=== PATIENT | female | born 1945 | race Caucasian/White ===

== ENCOUNTER 2019-04-19 09:01 | Outpatient (CLI) | payer MEDICARE, SELFPAY ==
--- NOTE | ~2019-04-19 | PE_ITS ---
EXAMINATION: PET skull to mid thigh DATE: 04/19/2019 11:21 INDICATION: Malignant neoplasm of the left bronchus or lung TECHNIQUE: Blood glucose level was 88 mg/dL. 10.046 mCi of 18-fluorodeoxyglucose (18-FDG) was adminis tered i.v. Low dose computed tomography (CT) images were acquired from the base of the brain to the p roximal thighs for attenuation correction and anatomic localization. Positron emission tomography (PE T) images were acquired in the same distribution beginning 78 minutes after injection. COMPARISON: 10/05/2018 FINDINGS: Head/neck: FDG uptake in the oropharynx and focal cords without suspicious CT correlate is most likel y physiologic. No suspicious FDG uptake is identified. Chest: The previously described 9 mm left upper lobe nodule with abnormal FDG uptake has decreased in size now measuring 6 cm. Associated FDG uptake has also apparently decreased but this could be due t o small size. There is a 1.3 x 1.0 cm cavitary nodule of the left upper lobe on image 263 which demon strates interval thickening of the wall and mild FDG uptake with an SUV max of 2.4. A chronic area of scarring in the demonstrates minimal FDG uptake with an SUV max of 1.7. There is mild dependent atel ectasis. No pathologically enlarged thoracic lymph nodes are identified. The heart size is normal. Ca lcified mediastinal lymph nodes are consistent with old granulomatous disease. 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 N o abnormal FDG uptake is identified. Punctate calcifications in an otherwise normal spleen likely rep resent healed granulomatous disease. Chronic pneumobilia persists but has decreased. Cysts of the kid neys measure up to 5.0 cm on the right. There is calcified atherosclerosis of the aorta and many of t he other arteries. No pathologically enlarged abdominal or pelvic lymph nodes are identified. There i s no free intraperitoneal gas or evidence of bowel obstruction. Musculoskeletal: There is a new mild compression deformity of the T8 vertebral body with approximatel y one third loss of vertebral body height. There is minimal associated abnormal FDG uptake. No underl mitchell lesion is identified. No additional abnormal FDG uptake is identified. IMPRESSION: 1. Interval decrease in size of, and FDG uptake within, a biopsy-proven left upper lobe malignancy. A pparent decrease in FDG uptake could relate to the now small size of the nodule. 2. Subtle FDG uptake in a cavitary left upper lobe nodule and area of right upper lobe scarring could be reactive, infectious, or inflammatory. Attention on follow-up examination is recommended. 3. New compression fracture of the T8 vertebral body with one third loss of vertebral body height but no definite underlying metastasis. Reviewed, dictated and finalized at location [facility]. OR MAGAZINE IMPRESSION: 1. Interval decrease in size of, and FDG uptake within, a biopsy-proven left up per lobe malignancy. Apparent decrease in FDG uptake could relate to the now sm all size of the nodule. 2. Subtle FDG uptake in a cavitary left upper lobe nodule and area of right upp er lobe scarring could be reactive, infectious, or inflammatory. Attention on f ollow-up examination is recommended. 3. New compression fracture of the T8 vertebral body with one third loss of sierra tebral body height but no definite underlying metastasis.
[2019-04-19 09:30] LABS: Glucose Point of Care 88 (65-105)
== END 2019-04-19 09:02 | disposition home or self-care (01) ==
LOC: ANHIMG 09:04
PROVIDERS: PCP Family Medicine; Visit Provider Internal Medicine Hematology & Oncology
DX: C34.92 Malignant neoplasm of unspecified part of left bronchus or lung (principal); R91.8 Other nonspecific abnormal finding of lung field; M48.54XA Collapsed vertebra, not elsewhere classified, thoracic region, initial encounter for fracture
CPT/HCPCS: 78815; A9552

== ENCOUNTER 2019-06-02 09:36 | Outpatient (CLI) | payer MEDICARE, SELFPAY ==
--- NOTE | ~2019-06-02 | CT_ITS ---
EXAMINATION: CT chest w con DATE: 06/02/2019 10:23 INDICATION: Non-small cell left lung cancer TECHNIQUE: Computed tomography (CT) of the chest was performed with 75 cc Omnipaque 350 intravenous c ontrast. Automated exposure control and iterative reconstruction technique were employed. Exam dose: 143.72 mGy-cm total exam DLP. COMPARISON: 09/06/2018 CTA chest abdomen pelvis 02/07/2019 CT chest 04/19/2019 10/CT scan FINDINGS: Calcified right hilar and subcarinal lymph nodes and calcified middle and right lower lobe pulmonary granulomas, consistent with old granulomatous disease. Normal heart size. No pericardial or pleural effusion. Descending thoracic aortic stent graft is again noted. Emphysematous changes are again noted. Chronic stable posterolateral right apical scarring. Focal discoid atelectasis and/or scarring middle lobe in the paramediastinal area. Chronic discoid atelectasis or scarring in the posteromedial left lung base, mildly improved since . There is focal irregular soft tissue thickening in the anteromedial left upper lobe (series 4 images 55-59 which appears mildly increased in prominence compared to 02/07/2019. Malignancy at this site is not excluded. Consider continued periodic CT and PET/CT scan monitoring at appropriate intervals. Approximately 5-6 mm density in the right upper lobe (series 4 image 60), compared to 7 mm on 09/07/19 19. Approximately 6 mm opacity in the left upper lobe (series 4 image 55), diminished in size from 9 mm o n 09/06/2018. Right lower mediastinal calcified lymph nodes consistent with old granulomatous disease Pneumobilia. Hepatic and splenic calcified granulomas consistent with old granulomatous disease Scattered left renal cysts. Healing right 10th and 11th rib fractures. IMPRESSION: Mild increased prominence of left upper lobe localized opacity; otherwise diminished siz e of bilateral lung nodules since 02/07/2019. Continued CT thorax and PET/CT follow up is recommended. Reviewed, dictated and finalized at [facility]. Reviewed, dictated and finalized at location [facility]. IMPRESSION: Mild increased prominence of left upper lobe localized opacity; ot herwise diminished size of bilateral lung nodules since 02/07/2019. Continued CT thorax and PET/CT follow up is recommended.
[2019-06-02 10:16] LABS: Estimated Glomerular Filt Rate > 60
== END 2019-06-02 09:37 | disposition home or self-care (01) ==
LOC: ANHIMG 09:38
PROVIDERS: PCP Family Medicine; Visit Provider Internal Medicine Hematology & Oncology
DX: C34.92 Malignant neoplasm of unspecified part of left bronchus or lung (principal)
CPT/HCPCS: 36415; 71260; Q9967

== ENCOUNTER 2019-06-06 10:02 | Outpatient (CLI) | payer MEDICARE, SELFPAY ==
[2019-06-06 10:20] LABS: Basophils Absolute Auto 0.1 K/mm3 (0.0-0.1); Basophils Percent Auto 1.2 % (0.2-1.2); Eosinophils Absolute Auto 0.2 K/mm3 (0-0.3); Hematocrit 44.8 % (37.0-47.0); Immature Granulocyte Absolute 0.02 K/mm3 (0.00-0.031); Immature Granulocyte Percent A 0.2 % (0-0.5); Lymphocytes Absolute Auto 1.56 K/mm3 (0.9-3.2); Lymphocytes Percent Auto 15.9 % (18.3-44.2); Mean Corpuscular HGB Conc 31.3 g/dl (32-36); Mean Corpuscular Hemoglobin 32.9 pg (26-34); Mean Corpuscular Volume 105.2 fl (80-100); Mean Platelet Volume 10.1 fl (7.4-10.4); Monocytes Absolute Auto 0.4 K/mm3 (0.1-0.6); Monocytes Percent Auto 4.3 % (2.6-8.5); Neutrophils Absolute Auto 7.5 K/mm3 (1.3-6.7); Neutrophils Percent Auto 76.4 % (45.5-73.1); Platelet Count Result 306 k/mm3 (150-375); Red Blood Count 4.26 M/mm3 (4.2-5.4); Red Cell Distribution Width 13.6 % (11.5-14.5); White Blood Count 9.8 K/mm3 (4.5-10.0)
[2019-06-06 12:33] LABS: Alanine Aminotransferase 24 U/L (4-35); Albumin Level 4.3 g/dL (3.5-5.1); Alkaline Phosphatase 107 U/L (38-126); Aspartate Amino Transferase 35 U/L (14-36); Bilirubin,Total 0.5 mg/dL (0.2-1.3); Blood Urea Nitrogen 15 mg/dL (7-17); Calcium 9.6 mg/dL (8.4-10.2); Carbon Dioxide 29 mmol/L (22-30); Chloride 103 mmol/L (98-107); Estimated Glomerular Filt Rate > 60; Glucose 114 mg/dL (65-105); Potassium 4.1 mmol/L (3.4-5.0); Sodium 138 mmol/L (137-145)
[2019-06-06 14:06] LABS: Iron 109 ug/dL (37-170); Percent Iron Saturation 42 % (20-50)
== END 2019-06-06 10:03 | disposition home or self-care (01) ==
PROVIDERS: PCP Family Medicine; Visit Provider Internal Medicine Hematology & Oncology
DX: D64.9 Anemia, unspecified (principal)
CPT/HCPCS: 36415; 80053; 82728; 83540; 83550; 85025

== ENCOUNTER 2019-09-06 08:33 | Outpatient (CLI) | payer MEDICARE, SELFPAY ==
--- NOTE | ~2019-09-06 | CT_ITS ---
EXAMINATION:CT chest w con DATE: 09/06/2019 09:47 INDICATION: Non-small cell cancer of left lung. TECHNIQUE: Computed tomography (CT) of the chest was performed without intravenous contrast. Automate d exposure control and iterative reconstruction technique were employed. The dose-length product (DLP ) was 135.96 mGy-cm. COMPARISON: Chest CT 06/02/2019, 09/06/2018 FINDINGS: There is severe emphysema. There is mild scarring in right upper lobe. A calcified right belle ng nodule and calcified mediastinal lymph nodes are consistent with old granulomatous disease. There is a 6 mm nodule left upper lobe without change. There is a 2.4 cm nodule in left upper lobe, increas ed from 1.7 cm on 06/02/2019. There is mild atelectasis in the lungs. No pleural effusion. The heart s ize is normal. There are coronary artery calcifications. No pericardial effusion. There is a 4.2 cm f usiform aneurysm of descending aorta with stent graft. No endoleak. Calcifications in the liver and s pleen are consistent with old granulomatous disease. Pneumobilia is noted, likely secondary to sphinc terotomy. There is cortical thinning of left kidney. There are cysts in the kidney measuring up to 11 mm. There is mild thoracic spondylosis. There is a chronic compression fracture of T8. IMPRESSION: 1. Stable 6 mm left upper lobe pulmonary nodule, consistent with non-small cell lung cancer. 2. Worsened 2.4 cm nodule in left upper lobe, which may be primary bronchogenic carcinoma or radiatio n pneumonitis. 3. Severe emphysema. 4. Stable 4.2 cm fusiform aneurysm of descending aorta with stent graft. Reviewed, dictated and finalized at location [facility]. IMPRESSION: 1. Stable 6 mm left upper lobe pulmonary nodule, consistent with non-small cell lung cancer. 2. Worsened 2.4 cm nodule in left upper lobe, which may be primary bronchogenic carcinoma or radiation pneumonitis. 3. Severe emphysema. 4. Stable 4.2 cm fusiform aneurysm of descending aorta with stent graft.
[2019-09-06 09:35] LABS: Estimated Glomerular Filt Rate > 60
== END 2019-09-06 08:34 | disposition home or self-care (01) ==
LOC: ANHIMG 08:37
PROVIDERS: PCP Family Medicine; Visit Provider Internal Medicine Hematology & Oncology
DX: C34.92 Malignant neoplasm of unspecified part of left bronchus or lung (principal); J43.9 Emphysema, unspecified; I71.4 Abdominal aortic aneurysm, without rupture; R91.8 Other nonspecific abnormal finding of lung field
CPT/HCPCS: 36415; 71260; Q9967

== ENCOUNTER 2019-09-22 10:53 | Outpatient (CLI) | payer MEDICARE, SELFPAY ==
--- NOTE | ~2019-09-22 | PE_ITS ---
EXAMINATION: PET skull to mid thigh DATE: 09/22/2019 12:58 INDICATION: Non-small cell left lung cancer TECHNIQUE: Blood glucose level was 86 mg/dL. 10.114 mCi of 18-fluorodeoxyglucose (18-FDG) was adminis tered i.v. Low dose computed tomography (CT) images were acquired from the base of the brain to the p roximal thighs for attenuation correction and anatomic localization. Positron emission tomography (PE T) images were acquired in the same distribution beginning 74 minutes after injection. Images includi ng fused PET/CT images were reconstructed in axial, coronal, and sagittal planes. Automated exposure control technique was employed. The dose-length product was 215.40mGy-cm. COMPARISON: PET CT dated 04/19/2019 and 10/05/[address] dated 09/06/2019 and 02/07/2019 FINDINGS: Head/neck: There is symmetric increased activity in the oral cavity, palatine tonsils, parotid glands, submandi bular glands, laryngeal muscles and ocular muscles without CT correlate, likely physiologic. There is some increased FDG uptake associated with severe cervical facet osteoarthritis most prominent on the left at C4-C5 with there are marked hypertrophic changes but no underlying suspicious lytic or blast ic bone lesion. No pathologically enlarged cervical lymphadenopathy or suspicious foci of increased F DG uptake in the visualized head or neck. Chest: Severe emphysema. No FDG uptake associated with a residual 5 mm nodule in the posterior segment of th e left upper lobe which at the time of an earlier biopsy demonstrating adenocarcinoma which measured 9 mm one year prior. An irregular oblong nodular opacity right apex measuring 1.6 x 0.8 cm with mild increased FDG uptake of 2.0. The size and degree of FDG uptake are increased since 10/05/2018 at which time the lesion measured 1.3 x 0.6 cm with maximal SUV of 1.1. There has also been increase in size of a 3.1 x 2.3 cm spiculated mass at the left upper lobe with maximal SUV of 7.3 which is increased f rom approximately 1.2 cm with maximal SUV of 2.5 on 04/19/2019 which was present but nearly indiscerni ble on both CT and PET images on the earlier study from 10/05/2018. No new nodules identified. Regions of discoid atelectasis in the right upper lobe. Calcified right lower lobe nodule along with calcified right hilar and mediastinal lymph nodes consistent with old granulomatous disease. Arch siz e is normal. No pericardial or pleural effusion. Atherosclerotic coronary artery ossifications. Uncha nged endoluminal stent grafting of a fusiform aneurysm of the descending thoracic aorta with maximal diameter of 4.2 cm. No pathologically enlarged or FDG avid thoracic lymphadenopathy. Chronic T8 compr ession fracture. No suspicious lytic, blastic or FDG avid bone lesions. Abdomen/pelvis/proximal thighs: Photopenic defects associated with multiple bilateral low-attenuation renal cysts. Physiologic renal accumulation and excretion of FDG activity in the kidneys, bladder and along portions of ureters. Nor mal degree and heterogenous pattern of increased uptake throughout the liver without radiologic corre late or dominant FDG avid lesion. Chronic pneumobilia likely related to prior cholecystectomy and sph incterotomy. The pancreas, and bilateral adrenal glands are normal. A couple small splenic calcificat ions consistent with old granulomatous disease. Mild uptake scattered throughout the bowels without r adiologic correlate, also likely physiologic. No other abnormal foci of increased FDG uptake or patho logically enlarged lymphadenopathy in the abdomen, pelvis or proximal thighs. Mild thoracolumbar levo curvature with moderate spondylosis. No suspicious lytic, blastic or FDG avid bone lesions. IMPRESSION: 1. Progressive increase in size and FDG uptake more prominently at a 3.1 cm left upper lobe nodule an d to a lesser degree of a 1.6 similar right upper lobe nodule both which are patricio
[2019-09-22 11:20] LABS: Glucose Point of Care 96 (65-105)
== END 2019-09-22 10:54 | disposition home or self-care (01) ==
LOC: ANHIMG 10:55
PROVIDERS: PCP Family Medicine; Visit Provider Internal Medicine Hematology & Oncology
DX: D02.22 Carcinoma in situ of left bronchus and lung (principal); J43.9 Emphysema, unspecified; I71.2 Thoracic aortic aneurysm, without rupture; R91.8 Other nonspecific abnormal finding of lung field
CPT/HCPCS: 78815; A9552

== ENCOUNTER 2019-11-01 16:51 | Emergency (ER) | payer MEDICARE, SELFPAY ==
[2019-11-01 17:06] VITALS: BP 185/87; PULSE 96; RESP 16; TEMP 37.2; O2SAT 92
--- NOTE | 2019-11-01 17:10 | PC.NURSE ---
pt states her bp has come down alot from cancer center and that she does not need to be seen. made aware of return prompts. states will return as needed.
== END 2019-11-01 17:10 | disposition left against medical advice (07) ==
PROVIDERS: PCP Family Medicine
DX: I10 Essential (primary) hypertension (principal)
CPT/HCPCS: 99199

== ENCOUNTER 2020-01-04 14:26 | Outpatient (CLI) | payer MEDICARE, SELFPAY ==
--- NOTE | ~2020-01-04 | CT_ITS ---
EXAMINATION: CT chest wo con DATE: 01/04/2020 15:20 INDICATION: MALIGNANT NEOPLASM UP UPPER LOVE, LEFT BRONCHUS OR LUNG TECHNIQUE: Computed tomography (CT) of the chest was performed without intravenous contrast. Addition al 3D reconstructions utilizing coronal maximum intensity projection (MIP) were performed. Automated exposure control and iterative reconstruction technique were employed. The dose-length product was 14 1.50 mGy-cm. COMPARISON: PET/CT dated 09/22/[address] dated 09/06/2019 FINDINGS: Severe emphysema. No interval change in a 1.6 x 0.8 cm irregular oblong nodule along a region of line ar discoid atelectasis/scarring at the superior segment of the right upper lobe. Significant interval decrease in size of a prior left upper lobe nodule measuring 2.9 x 1.8 cm mass measured on the axial plane which is difficult to discriminate from a thickened horizontal band of likely radiation fibros is. The margins of the mass are indistinguishable from the fibrosis on the axial images however the b and of fibrosis measures proximally 1 cm in thickness which is significantly less than the 2.1 cm wid th of the mass measures lung the same access on the sagittal images. No interval change in size of a 7 mm left upper lobe nodule near the major fissure. This nodule is significantly decreased in size si nce 8 prior biopsy demonstrating non-small cell lung cancer consistent with early response to treatme nt. Unchanged linear atelectasis/scarring in the lingula, right middle and basilar lower lobes. Calci fied right lower lobe nodule with calcified right hilar and mediastinal lymph nodes consistent with o ld granulomatous disease. Heart size is normal. Atherosclerotic coronary artery calcification. Atherosclerotic aorta with ectat ic ascending thoracic aorta measuring up to 3.9 cm in maximal diameter and fusiform aneurysm of the p roximal descending thoracic aorta which measures up to 4.2 cm with endoluminal stent graft. Enlargeme nt of the central pulmonary arteries consistent with pulmonary arterial hypertension. No pathological ly enlarged thoracic lymphadenopathy. Hepatic and splenic calcifications consistent with old granulo matous disease. Chronic pneumobilia likely related to prior sphincterotomy 1.3 cm exophytic cyst at t he upper pole of the right kidney. Chronic T8 compression fracture. IMPRESSION: 1. Significant decrease in size of a previous 2.9 x 1.8 cm FDG avid left upper lobe mass which is now indiscernible from a 1 cm thick or subtle band of likely radiation fibrosis. 2. No interval change in a 2.9 x 1.8 cm oblong nodular density along a linear band of atelectasis/sca rring at the right upper lobe. 3. Unchanged 7 mm left upper lobe nodule consistent with treated biopsy-proven lung cancer. 4. Severe emphysema. 5. Stable 4.2 cm fusiform aneurysm of the descending aorta with endoluminal stent graft. Reviewed, dictated and finalized at location [facility]. IMPRESSION: 1. Significant decrease in size of a previous 2.9 x 1.8 cm FDG avid left upper lobe mass which is now indiscernible from a 1 cm thick or subtle band of likely radiation fibrosis. 2. No interval change in a 2.9 x 1.8 cm oblong nodular density along a linear b and of atelectasis/scarring at the right upper lobe. 3. Unchanged 7 mm left upper lobe nodule consistent with treated biopsy-proven lung cancer. 4. Severe emphysema. 5. Stable 4.2 cm fusiform aneurysm of the descending aorta with endoluminal rory nt graft.
== END 2020-01-04 14:27 | disposition home or self-care (01) ==
LOC: ANHIMG 14:39
PROVIDERS: PCP Family Medicine; Visit Provider Radiology Radiation Oncology
DX: C34.12 Malignant neoplasm of upper lobe, left bronchus or lung (principal)
CPT/HCPCS: 71250

== ENCOUNTER 2020-01-30 14:37 | Outpatient (CLI) | payer MEDICARE, SELFPAY ==
--- NOTE | 2020-01-30 14:54 | ECHO_ITS ---
Patient Info Name: Demetria Salgado Age: 74 years : 1945 Gender: Female Ht: 60 in Wt: 94 lbs BSA: 1.34 m2 HR: 85 bpm BP: 138 / 91 mmHg Heart Rhythm: Sinus Rhythm Technical Quality: Good Exam Date: 01/30/2020 3:04 PM Exam Location: [facility] Patient Status: Outpatient Admit Date: 01/30/2020 Staff Ordering Physician: Ac Lynn DO Meat Stocker: Tal Tavarez RDCS Attending Provider: Ac Lynn DO Referring Physician: Shane GODWIN; Exam Type: CA echo doppler color flow Study Info Indications R06.00 - Dyspnea, unspecified Complete two-dimensional, color flow and Doppler transthoracic echocardiogram is performed. History/Risk Factors Dyspnea. Summary 1. Complete two-dimensional, color flow and Doppler transthoracic echocardiogram is performed. 2. Left ventricular chamber dimension is normal. 3. Left ventricular systolic function is normal, estimated at 55-60%. 4. The left ventricular diastolic function is grade I diastolic dysfunction. 5. E/e' 11 is mildly elevated. 6. Left atrial chamber dimension is mildly enlarged. 7. There is moderate aortic valve sclerosis. 8. There is mild aortic valve stenosis based on a peak velocity of 92 cm/s, mean gradient of 2 mmHg, and aortic valve area of 1.5 cm2. 9. The mitral valve has moderately calcified annulus. 10. There is trace tricuspid valve regurgitation. Left Ventricle E/e' 11 is mildly elevated. Left ventricular chamber dimension is normal. Left ventricular systolic function is normal, estimated at 55-60%. The left ventricular diastolic function is grade I diastolic dysfunction. Right Ventricle Right ventricular chamber dimension is normal. Right ventricular systolic function is normal. Left Atria Left atrial chamber dimension is mildly enlarged. Right Atria Right atrial chamber dimension is normal. Aortic Valve There is mild aortic valve stenosis based on a peak velocity of 92 cm/s, mean gradient of 2 mmHg, and aortic valve area of 1.5 cm2. The aortic valve is probable trileaflet. There is moderate aortic valve sclerosis. There is no aortic valve regurgitation. Pulmonic Valve There is no pulmonic regurgitation. Mitral Valve The mitral valve has moderately calcified annulus. There is no mitral valve stenosis. There is no mitral valve regurgitation. Tricuspid Valve RVSP is not calculated due to an inadequate TR jet. There is trace tricuspid valve regurgitation. Pericardium/Pleural There is no pericardial effusion. Inferior Vena Cava Normal inferior vena cava with >50% collapse upon inspiration consistent with normal right atrial pressure, 5 mmHg. Aorta The aortic root size at the sinus of Valsalva is normal. Left Ventricular Outflow Tract Name Value Normal LVOT 2D LVOT Diameter 1.6 cm LVOT Doppler LVOT Peak Gradient 2 mmHg LVOT Mean Gradient 1 mmHg LVOT VTI 13 cm LVOT VTI/AV VTI Ratio 0.7 LVOT Stroke Volume 28 ml LVOT CO
== END 2020-01-30 14:38 | disposition home or self-care (01) ==
LOC: ANHCARD 14:38
PROVIDERS: PCP Family Medicine; Visit Provider Internal Medicine Cardiovascular Disease
DX: R06.00 Dyspnea, unspecified (principal)
CPT/HCPCS: 93306

== ENCOUNTER 2020-03-08 11:31 | Outpatient (NON) | payer MEDICARE, SELFPAY ==
[2020-03-08 13:56] LABS: Influenza Control Positive
[2020-03-08 22:00] LABS: SARS-CoV-2 RNA PCR Negative
== END 2020-03-08 11:32 ==
LOC: ANHCOVIDDT 11:33
PROVIDERS: PCP Family Medicine; Visit Provider Family Medicine
DX: Z20.828 Contact with and (suspected) exposure to other viral communicable diseases (principal); R05 Cough
CPT/HCPCS: 87635; 87804; C9803; U0003

== ENCOUNTER 2020-04-05 13:01 | Outpatient (CLI) | payer MEDICARE, SELFPAY ==
--- NOTE | ~2020-04-05 | CT_ITS ---
EXAMINATION: CT chest wo con DATE: 04/05/2020 13:25 INDICATION: MALIGNANT NEOPLASM OF UPPER LOBE C34.12 - Malignant neoplasm of upper lobe, left bronchus or lung TECHNIQUE: Computed tomography (CT) of the chest was performed without intravenous contrast. Addition al 3D reconstructions utilizing coronal maximum intensity projection (MIP) were performed. Automated exposure control and iterative reconstruction technique were employed. The dose-length product was 13 5.07 mGy-cm. COMPARISON: 01/04/2020 FINDINGS: Severe emphysema. No definite interval change in an irregular oblong nodule along a region of linear discoid atelectasis/scarring at the superior segment of the right upper lobe which currently measures approximately 1.4 x 0.7 cm. Again seen is anterior to posteriorly oriented paramediastinal band of l ikely radiation fibrosis in the medial left upper lobe and lingula which has increased in thickness a t the level of the osmani which is cephalad to the level of the spiculated mass seen on an earlier st udy dated 09/06/2019. There is a triangular region of consolidation anteriorly in the anteroinferior l eft upper lobe near to the site of an earlier spiculated nodule which also appears slightly in size t o a lesser degree however there has been interval change in a local architectural of the lung and yumiko entation of the band of consolidation making direct numerical comparison difficult. No evident single site of more prominent interval growth. No significant interval change in a linear horizontal band o f atelectasis/scarring in the contralateral paramediastinal anterior right upper lobe. No interval ch demetrice in size of a 7 mm left upper lobe nodule near the major fissure which is significantly decreased in size since a prior biopsy on 09/16/2018 demonstrating non-small cell lung cancer consistent with t reated lung cancer. Additional scattered mild linear atelectasis/scarring in the lingula, right middl e and basilar lower lobes. Calcified right lower lobe nodule with calcified right hilar and mediastin al lymph nodes consistent with old granulomatous disease. Heart size is normal. Atherosclerotic coronary artery calcification. Atherosclerotic aorta with ectat ic ascending thoracic aorta measuring up to 4.0 cm in maximal diameter and fusiform aneurysm of the p roximal descending thoracic aorta which measures up to 4.2 cm with endoluminal stent graft. Enlargeme nt of the central pulmonary arteries consistent with pulmonary arterial hypertension. There is been s ignificant interval increase in size of a mediastinal lymph node located anterior to the distal trach ea which previously measured 4 mm in maximal diameter and currently measures up to 1.6 x 1.1 cm. Patricia lar significant increase in size of a previously approximately 10 x 7 mm subcarinal lymph node curren tly measuring 2.9 x 2.1 cm . Both are consistent with progression of metastatic disease. Hepatic and splenic calcifications consistent with old granulomatous disease. Chronic pneumobilia likely related to prior sphincterotomy. 1.3 cm exophytic cyst at the upper pole of the right kidney. 5 mm hyperdense hemorrhagic/proteinaceous cyst at the upper pole of the left kidney. Chronic T8 compression fracture . IMPRESSION: 1. Increasing thickness of a paramediastinal band of consolidation in the left upper lobe and lingula consistent with progression of radiation fibrosis/scarring however residual/recurrent malignancy can not be excluded. 2. Significant interval increase in size of a couple mediastinal lymph nodes the largest subcarinal l ymph node measuring 2.9 x 2.1 cm consistent with progression of metastatic disease. 3. Unchanged 7 mm left upper lobe nodule consistent with treated biopsy-proven lung cancer. 4. Severe emphysema. 5. Stable 4.2 cm fusiform aneurysm of the descending aorta with endoluminal stent graft.
== END 2020-04-05 13:02 | disposition home or self-care (01) ==
PROVIDERS: PCP Family Medicine; Visit Provider Radiology Radiation Oncology
DX: C34.12 Malignant neoplasm of upper lobe, left bronchus or lung (principal); J43.9 Emphysema, unspecified; I71.4 Abdominal aortic aneurysm, without rupture; R91.8 Other nonspecific abnormal finding of lung field
CPT/HCPCS: 71250

== ENCOUNTER 2020-04-17 12:13 | Outpatient (CLI) | payer MEDICARE, SELFPAY ==
--- NOTE | ~2020-04-17 | PE_ITS ---
EXAMINATION: PET skull to mid thigh DATE: 04/17/2020 14:39 INDICATION: Left lung cancer TECHNIQUE: Blood glucose level was 88 mg/dL. 9.677 mCi of 18-fluorodeoxyglucose (18-FDG) was administ ered i.v. Low dose computed tomography (CT) images were acquired from the base of the brain to the pr oximal thighs for attenuation correction and anatomic localization. Positron emission tomography (PET ) images were acquired in the same distribution beginning 88 minutes after injection. Images includin g fused PET/CT images were reconstructed in axial, coronal, and sagittal planes. Automated exposure c ontrol technique was employed. The dose-length product was 208.24mGy-cm. COMPARISON: 09/22/2019 FINDINGS: Head/neck: There is symmetric increased activity in the oral cavity, palatine tonsils, parotid glands, submandi bular glands, laryngeal muscles and ocular muscles without CT correlate, likely physiologic. Mild lik teresa degenerative synovial FDG uptake at the periphery of the left C3-C4 and C4-C5 facet joints where there is severe osteoarthritis. No pathologically enlarged cervical lymphadenopathy or suspicious foc i of increased FDG uptake in the visualized head or neck. No suspicious lytic or blastic bone lesions . Chest: Severe emphysema. Minimal FDG uptake with maximal SUV of 1.7 associated with a chronic 13 x 7 mm oblo ng nodule in the right upper lobe. There is also minimal FDG uptake with maximal SUV of 1.7 associate d with the previously biopsied 8 x 5 mm left upper lobe nodule consistent with treated biopsy-proven primary non-small cell lung cancer. No significantly increased or more focal FDG uptake associated wi th a band of paramediastinal consolidation in the anterior left upper lobe likely representing radiat ion fibrosis post treatment of a prior FDG avid nodule which is no longer discernible from the surrou nding scarring. There is however significant increased FDG uptake associated with the recently noted enlarging and likely metastatic lymph nodes in the right paratracheal, subcarinal and left hilar eileen ons with maximal SUVs measuring 8.2, 12.6 and 8.5 respectively. There is pulmonary edema with septal line thickening isolated to the left upper lobe which likely related to either pulmonary venous or ly mphatic obstruction at the level of the left hilum. There is approximately 2 cm focal region of mild increased FDG uptake with maximal SUV of 3.4 in the left subclavian muscle at the level of the neck o f the glenoid without evident correlate on CT which could be due to muscular activity however the foc ality also raises concern for metastatic disease. Heart size is normal. Atherosclerotic coronary merlin ry calcification is. No pericardial or pleural effusion. Calcified right hilar and paraesophageal lym ph nodes consistent with old granulomatous disease. Unchanged fusiform aneurysms of the proximal desc ending thoracic aorta measuring up to 4.2 cm with change of prior endoluminal stent grafting. Chronic T11 compression fracture with 20% anterior vertebral body height loss. No suspicious lytic, blastic or FDG avid bone lesions. Abdomen/pelvis/proximal thighs: Physiologic renal accumulation and excretion of FDG activity in the kidneys, bladder and along portio ns of ureters. 5.4 cm photopenic low-attenuation exophytic right renal cyst. Chronic pneumobilia like ly related to prior cholecystectomy and sphincterotomy. Normal degree and heterogenous pattern of inc reased uptake throughout the liver without radiologic correlate or dominant FDG avid lesion. A few sc attered hepatic and splenic calcific lesions consistent with old granulomatous disease. The pancreas and bilateral adrenal glands are normal. Mild to moderate uptake scattered throughout the bowels with out radiologic correlate, also likely physiologic. No other abnormal foci of increased FDG uptake or pathologically enlarged lymphadenopathy in the abdomen, pelv
[2020-04-17 12:47] LABS: Glucose Point of Care 88 (65-105)
== END 2020-04-17 12:14 | disposition home or self-care (01) ==
PROVIDERS: Family Provider Internal Medicine; PCP Family Medicine; Visit Provider Radiology Radiation Oncology
DX: C34.12 Malignant neoplasm of upper lobe, left bronchus or lung (principal)
CPT/HCPCS: 78815; A9552

== ENCOUNTER 2020-04-27 11:11 | Outpatient (CLI) | payer MEDICARE, SELFPAY ==
[2020-04-27 11:26] LABS: Basophils Absolute Auto 0.1 K/mm3 (0.0-0.1); Basophils Percent Auto 0.5 % (0.2-1.2); Eosinophils Absolute Auto 0.1 K/mm3 (0-0.3); Eosinophils Percent Auto 0.6 % (0-4.4); Hematocrit 41.3 % (37.0-47.0); Hemoglobin 12.9 g/dL (12.0-15.0); Immature Granulocyte Absolute 0.04 K/mm3 (0.00-0.031); Immature Granulocyte Percent A 0.3 % (0-0.5); Lymphocytes Absolute Auto 1.18 K/mm3 (0.9-3.2); Lymphocytes Percent Auto 9.1 % (18.3-44.2); Mean Corpuscular HGB Conc 31.2 g/dl (32-36); Mean Corpuscular Hemoglobin 32.2 pg (26-34); Mean Platelet Volume 10.1 fl (7.4-10.4); Monocytes Absolute Auto 0.9 K/mm3 (0.1-0.6); Neutrophils Absolute Auto 10.6 K/mm3 (1.3-6.7); Neutrophils Percent Auto 82.5 % (45.5-73.1); Platelet Count Result 404 k/mm3 (150-375); Red Blood Count 4.01 M/mm3 (4.2-5.4); Red Cell Distribution Width 13.8 % (11.5-14.5); White Blood Count 12.9 K/mm3 (4.5-10.0)
[2020-04-27 11:34] LABS: Blood Urea Nitrogen 18 mg/dL (8-26); Carbon Dioxide 27 mmol/L (22-30); Chloride 102 mmol/L (98-109); Estimated Glomerular Filt Rate > 60; Glucose 100 mg/dL (70-105); Potassium 4.2 mmol/L (3.5-4.9); Sodium 139 mmol/L (138-146)
[2020-04-27 16:50] LABS: Alanine Aminotransferase 17 U/L (4-35); Alkaline Phosphatase 114 U/L (38-126); Anion Gap 7 mmol/L (8-16); Aspartate Amino Transferase 23 U/L (14-36); Bilirubin,Total 0.4 mg/dL (0.2-1.3); Blood Urea Nitrogen 19 mg/dL (7-17); Calcium 9.7 mg/dL (8.4-10.2); Carbon Dioxide 29 mmol/L (22-30); Chloride 104 mmol/L (98-107); Estimated Glomerular Filt Rate > 60; Glucose 103 mg/dL (65-105); Potassium 4.5 mmol/L (3.4-5.0); Sodium 140 mmol/L (137-145)
== END 2020-04-27 11:12 | disposition home or self-care (01) ==
LOC: ANHLAB 11:12
PROVIDERS: PCP Family Medicine; Visit Provider Internal Medicine Hematology & Oncology
DX: C34.92 Malignant neoplasm of unspecified part of left bronchus or lung (principal)
CPT/HCPCS: 36415; 80048; 80053; 85025

== ENCOUNTER → 2020-05-18 00:19 | Outpatient (CLI) | payer MEDICARE, SELFPAY ==
[2020-05-18 17:47] LABS: SARS-CoV-2 RNA PCR Negative
== END ==
PROVIDERS: PCP Family Medicine; Visit Provider Surgery
DX: Z01.812 Encounter for preprocedural laboratory examination (principal); Z20.822 Contact with and (suspected) exposure to COVID-19
CPT/HCPCS: C9803; U0003; U0005

== ENCOUNTER 2020-05-21 00:42 | Day surgery (SDC) | payer MEDICARE, SELFPAY ==
[2020-05-18 11:09] VITALS: BMI 17.0
--- NOTE | ~2020-05-21 | XR_ITS ---
EXAMINATION: XR fl guide central line place EXAM DATE: 05/21/2020 15:04 INDICATION: Insertion right-sided portacatheter. TECHNIQUE: Fluoroscopy used during XR fl guide central line place performed by Dr. Pasquale granda DO. The DAP for this procedure was 0.13 mGym2. FINDINGS: There is a right-sided IJ approach portacatheter, tip projecting over the SVC, adequate. Correlate with procedure note. IMPRESSION: Fluoroscopy used during XR fl guide central line place. Reviewed, dictated and finalized at location A. [facility] OPERATIONS MANAGER
--- NOTE | ~2020-05-21 | XR_ITS ---
EXAMINATION: XR chest port-a-cath/central DATE: 05/21/2020 15:32 INDICATION: Port catheter insertion TECHNIQUE: frontal view of the chest was obtained. COMPARISON: Chest radiograph dated 09/16/[address] dated 04/05/2020 FINDINGS: Right internal jugular central venous port catheter with distal tip in the caudal superior vena cava. Emphysema better appreciated on prior CT. Subtle opacity right apex not appreciably changed since pr ior CT . Opacities in the left mid and lower lung zone which appear more prominent than on the prior CT. There is also increased subtle interstitial pattern in the mid to lower lungs with a few peripher al Mee B-lines consistent with mild pulmonary edema. No pleural effusion or pneumothorax. Calcifie d nodule in the right lower lobe and calcified right hilar and mediastinal lymph nodes consistent wit h old granulomatous disease. Heart size is normal. Endoluminal stent grafting along the proximal desc ending thoracic aorta. IMPRESSION: 1. Right internal jugular central venous port catheter tip in the caudal superior vena cava. No pneum othorax. 2. Mild pulmonary edema. 3. Opacities in the left mid and lower lung zone which are more prominent than on the prior radiograp hs and based on CT and PET/CT likely represent progression of radiation fibrosis for normal lung canc er. Differential would include increasing superimposed pulmonary edema or pneumonia. 4. Emphysema. Reviewed, dictated and finalized at location B. NING LAT[employer] OPERATOR IMPRESSION: 1. Right internal jugular central venous port catheter tip in the caudal superi or vena cava. No pneumothorax. 2. Mild pulmonary edema. 3. Opacities in the left mid and lower lung zone which are more prominent than on the prior radiographs and based on CT and PET/CT likely represent progressio n of radiation fibrosis for normal lung cancer. Differential would include incr easing superimposed pulmonary edema or pneumonia. 4. Emphysema.
--- NOTE | 2020-05-21 08:08 | WPDANESEPPF ---
Anes - Initial Pre Proc Eval Procedure: Operation Date: 05/21/20 14:00 Proposed Procedures p Insertion Arjun Cath - Pasquale Waggoner DO Date/Time: 05/21/20 08:08 Surgeon: Pasquale Waggoner DO Pre Op Diagnosis: non small cell CA left lung Patient Data Age: 75 Gender: F Height: 1.55 m Weight: 40.85 kg Allergies Allergy/AdvReac Type Severity Reaction Status Date / Time naproxen Allergy Mild Hives Verified 05/21/20 12:20 Home Medications Medication Instructions Recorded Confirmed Type aspirin [Aspirin Childrens] 81 mg PO DAILY 01/13/19 05/18/20 History multivitamin 1 tablet PO DAILY 01/13/19 05/18/20 History ferrous sulfate 324 mg PO DAILY 03/10/19 05/18/20 History ipratropium 0.5 mg-albuterol 3 mg 3 ml INHALATION Q6H PRN #360 ml 06/30/19 05/18/20 Rx (2.5 mg base)/3 mL nebulization soln hydrocodone-acetaminophen 1 tablet PO Q6H PRN #30 tablet 11/08/19 05/18/20 Rx fluticasone fur. 100 mcg-umeclid 1 inh INHALATION Q24H #60 ea 01/12/20 05/18/20 Rx 62.5 mcg-vilant 25 mcg inhalat.powder trazodone 50 mg tablet See Rx Instructions .ROUTE 03/19/20 05/18/20 Rx .COMPLEX #90 tablet pantoprazole 20 mg tablet,delayed See Rx Instructions .ROUTE 04/16/20 05/18/20 Rx release .COMPLEX #90 tablet benzonatate 100 mg capsule 100 mg PO BID PRN 05/04/20 05/18/20 History lisinopril 20 mg tablet 20 mg PO DAILY 05/04/20 05/18/20 History metoprolol succinate 50 mg 50 mg PO DAILY 05/04/20 05/18/20 History tablet,extended release 24 hr escitalopram oxalate 20 mg DAILY 05/18/20 05/18/20 History Patient hx anesthesia problems: none Family hx anesthesia problems: none PMFSH Past Medical History Medical History Chronic anemia COPD (chronic obstructive pulmonary disease) Coronary artery disease involving [place] heart without angina pectoris Essential hypertension History of stent insertion of renal artery NSCLC of left lung PAD (peripheral artery disease) Thoracic aortic aneurysm without rupture Surgical History Surgical History History of coronary artery stent placement History of pancreatic surgery S/P [facility] Family History Family History Mother Family history of gastrointestinal disorder Grandparent Cerebrovascular accident Father Family history of malignant neoplasm Social History Social History Smoking packs per day: 1 Smoking cigarettes per day: 20.0 Years smoked: 60 Smoking pack-years: 60.00 Smoking status: Current every day smoker Tobacco type: cigarettes Second hand tobacco smoke exposure: Yes Smoking end date: 03/23/18 Additional smoking assessment comments: STATES 1/2-1PK/DAY/60YRS Alcohol intake: current Drinks per week: 2 Substance use: never Substance use type: does not use Living arrangements: alone Gender identity (if verbalized by the patient): Female Spiritual care concerns: No Agree to blood products: Yes Anes - Eval Final PreProcedure Day of Procedure 05/21/20 08:08 Patient weight: thin Heart: regular rate and rhythm Lungs: clear to auscultation and normal air movement Airway: Mallampati scale class II Neurological: alert and oriented Last oral intake: >/= 8 hours ASA classification: IV Emergent: no Anesthetic plan: proceed Anesthesia type and monitoring: general GIVS Informed Consent: The patient's anesthetic plan and its attendant risks and benefits were discussed with the patient/family/POA. Questions were solicited and answers provided to the satisfaction of the patient/family/POA.
[2020-05-21 12:15] VITALS: BMI 17.6
[2020-05-21 12:16] VITALS: BP 118/44; PULSE 75; RESP 24; TEMP 37.7; O2SAT 85
--- NOTE | 2020-05-21 12:18 | SUR.PREOP ---
1215; CALLED DR GABRIEL REGARDING TEMP AND DIARRHEA X 5 DAYS. 1218; DR GABRIEL AT BEDSIDE SPEAKING TO PT
--- NOTE | 2020-05-21 12:31 | SUR.PREOP ---
1206; LATE NOTE. UPON ARRIVAL TO PREOP, PT ASKING FOR OXYGEN. STATES SHE WEARS O2 3L NC AT HOME AT NIGHT AND SOMETIMES THROUGHOUT THE DAY. SAO2 85% ON ROOM AIR. O2 3L NC APPLIED.
[2020-05-21] MEDS: LACTATED RINGERS 1,000 ML 30 ML IV CONT (12:49)
--- NOTE | 2020-05-21 12:57 | SUR.PREOP ---
PT RESTING QUIETLY WITH EYES CLOSED. O2 3L NC REMAINS ON
[2020-05-21 13:06] LABS: Prothrombin Time 13.6 Seconds (11.1-14.7)
[2020-05-21 13:07] LABS: Partial Thromboplastin Time 31.1 SECONDS (22.3-36.8)
--- NOTE | 2020-05-21 14:13 | PM.IMHP ---
H&P: HPI History of Present Illness Date/Time: 05/21/20 14:13 Chief Complaint: lung cancer Narrative: Demetria Salgado is a 75 year old female who presents with left non small cell lung cancer. She is in need of a port placement for chemotherapy. Review of Systems Review of Systems: All systems reviewed & are unremarkable except as noted in HPI and below Constitutional: Constitutional: Denies chills, Denies fever(s), Denies headache(s) and Denies weight loss Eyes: Eyes: Denies change in vision ENT: Denies dizziness, Denies headache(s), Denies neck mass and Denies throat swelling Cardiovascular: Cardiovascular: Denies chest pain, Denies lightheadedness and Denies dyspnea Respiratory: Respiratory: Denies cough, Denies dyspnea and Denies wheezing Gastrointestinal: Gastrointestinal: Denies abdominal pain, Denies change in bowel habits, Denies nausea and Denies vomiting Genitourinary: Genitourinary: Denies hematuria and Denies dysuria Musculoskeletal: Musculoskeletal: Reports as per HPI Integumentary/Breasts: Skin/Breast: Reports as per HPI Neurologic: Denies dizziness and Denies headache(s) Allergic/Immunologic: Allergic/Immunologic: Denies throat swelling and Denies wheezing PMFSH Past Medical History Medical History Chronic anemia COPD (chronic obstructive pulmonary disease) Coronary artery disease involving [place] heart without angina pectoris Essential hypertension History of stent insertion of renal artery NSCLC of left lung PAD (peripheral artery disease) Thoracic aortic aneurysm without rupture Surgical History Surgical History History of coronary artery stent placement History of pancreatic surgery S/P [facility] Family History Family History Mother Family history of gastrointestinal disorder Grandparent Cerebrovascular accident Father Family history of malignant neoplasm Social History Social History Smoking packs per day: 1 Smoking cigarettes per day: 20.0 Years smoked: 60 Smoking pack-years: 60.00 Smoking status: Current every day smoker Tobacco type: cigarettes Second hand tobacco smoke exposure: Yes Smoking end date: 03/23/18 Additional smoking assessment comments: STATES 1/2-1PK/DAY/60YRS Alcohol intake: current Drinks per week: 2 Substance use: never Substance use type: does not use Living arrangements: alone Gender identity (if verbalized by the patient): Female Spiritual care concerns: No Agree to blood products: Yes Meds Home Medications and Allergies Home Medications Medication Instructions Recorded Confirmed Type aspirin [Aspirin Childrens] 81 mg PO DAILY 01/13/19 05/21/20 History multivitamin 1 tablet PO DAILY 01/13/19 05/21/20 History ferrous sulfate 324 mg PO DAILY 03/10/19 05/21/20 History ipratropium 0.5 mg-albuterol 3 mg 3 ml INHALATION Q6H PRN #360 ml 06/30/19 05/21/20 Rx (2.5 mg base)/3 mL nebulization soln hydrocodone-acetaminophen 1 tablet PO Q6H PRN #30 tablet 11/08/19 05/21/20 Rx fluticasone fur. 100 mcg-umeclid 1 inh INHALATION Q24H #60 ea 01/12/20 05/21/20 Rx 62.5 mcg-vilant 25 mcg inhalat.powder trazodone 50 mg tablet See Rx Instructions .ROUTE 03/19/20 05/21/20 Rx .COMPLEX #90 tablet pantoprazole 20 mg tablet,delayed See Rx Instructions .ROUTE 04/16/20 05/21/20 Rx release .COMPLEX #90 tablet benzonatate 100 mg capsule 100 mg PO BID PRN 05/04/20 05/21/20 History lisinopril 20 mg tablet 20 mg PO DAILY 05/04/20 05/21/20 History metoprolol succinate 50 mg 50 mg PO DAILY 05/04/20 05/21/20 History tablet,extended release 24 hr escitalopram oxalate 20 mg DAILY 05/18/20 05/21/20 History Allergies Allergy/AdvReac Type Severity Reaction Status Date / Time naproxen Allergy Mild Hives V
--- NOTE | 2020-05-21 14:14 | SUR.PREOP ---
PT/PTT RESULTS GIVEN TO DR GABRIEL
--- NOTE | 2020-05-21 14:16 | WPDHPUPDATE1 ---
History and Physical Update Update Date/Time: 05/21/20 14:16 History and Physical has been reviewed, including an updated exam of the patient. There are NO changes in the patient's condition. Risks, benefits, and alternatives have been discussed and questions answered. Patient agrees to proceed with procedure.
[2020-05-21] MEDS: ceFAZolin 2 GM/D5W 50 ML 2 GM/50 ML BAG IVPB (14:29)
[2020-05-21] MEDS: LIDO 1%/EPINEPHRINE 1:100,000 50 ML VIAL 20 ML INFILTRATE (14:49)
[2020-05-21] MEDS: HEPARIN SODIUM 5,000 UNITS/ML VIAL 5000 UNITS IRRIGATION (14:51)
[2020-05-21] MEDS: HEPARIN SODIUM 5,000 UNITS/ML VIAL 10000 UNITS IV PUSH (14:54)
--- NOTE | 2020-05-21 15:08 | PM.PROC ---
Procedure Note - Detailed Date of procedure: 05/21/20 Pre-op diagnosis: non small cell CA left lung Post-op diagnosis: same Procedure performed: Right internal jugular Port-A-Cath placement using ultrasound and fluoroscopic guidance Description of procedure: Procedure as well as risks, benefits, and alternatives were discussed with patient. Written consent was obtained and placed in chart prior to procedure. Patient was brought back to surgical suite. Was placed supine on operating table. Time-out was done confirm patient procedure. IV sedation was then administered by the Anesthesia Department. The chest and neck area was prepped and draped in sterile fashion using chlorhexidine prep. Patient was placed in Trendelenburg position. SonoSite ultrasound was used to identify the right internal jugular vein. It was visualized as a compressible vessel just lateral to the carotid artery. 1% lidocaine with epinephrine was infiltrated directly over the vessel under ultrasound guidance. An 18 gauge introducer needle was then advanced under ultrasound guidance directly into the right internal jugular vein. Dark nonpulsatile blood was aspirated. A 0.035 in guidewire was then advanced through the needle under fluoroscopic guidance. The guidewire was visualized advancing all the way down into the superior vena cava. 1% lidocaine with epinephrine was then infiltrated on the right anterior chest and along the tract up to the guidewire insertion site. A 3 cm incision was made with a 15 blade scalpel, and electrocautery was then used for dissection down through the subcutaneous tissue to the pectoral fascia. A pocket was created just inferior to the incision using blunt dissection. A small soy incision was then also made at the insertion site at the neck. The tunneler was then advanced from the chest incision up to the neck incision and the catheter tubing was brought up through this tract. The dilator and sheath were then advanced over the guidewire under fluoroscopic visualization. The dilator and guidewire were then removed leaving the sheath in place. The catheter tubing was then advanced through the sheath under fluoroscopic guidance. The sheath was unsnapped and carefully peeled away. The catheter tubing was released underneath the neck incision. Fluoroscopy was used to confirm proper placement of the catheter tubing and no kinks along its path. The catheter was then cut to proper length and secured to the port. The port was then accessed with a Frazier needle and aspirated and flushed with heparinized saline. The port function with ease. The port was then hep-locked with Hep-Lock solution. The port was then placed within the pocket that was created, and was secured to the fascia using 3 0 Prolene simple interrupted sutures. The patient was flattened out in bed. Sameera's fascia was reapproximated using 3 0 Vicryl simple interrupted sutures. The skin of the incisions was then approximated using 4-0 Monocryl subcuticular suture. Exofin glue was then applied on top. The patient was then awakened from anesthesia and transferred to recovery. Implants: [employer] Port Anesthesia: MAC and local (1% lidocaine with epinephrine) Surgeon: Pasquale Waggoner DO Estimated blood loss (mL): 5 Complications: No immediate complications Condition: stable Disposition: same day Findings: SonoSite ultrasound was used to identify the right internal jugular vein. This was visualized as a compressible vessel just lateral to the carotid artery. 18 gauge introducer needle was advanced under ultrasound guidance directly into the lumen of the right internal jugular vein. Dark nonpulsatile blood was aspirated. Fluoroscopy was then used to guide advancement of the guidewire followed by the dilator and sheath. The catheter tip was then advanced to the distal SVC. Final fluoroscopic images demonstrated the catheter tip proper position and no kinks along its path.
[2020-05-21 15:14] VITALS: BP 129/65; PULSE 88; RESP 16; O2SAT 96
[2020-05-21 15:45] VITALS: BP 139/62; PULSE 76; RESP 20; O2SAT 97
--- NOTE | 2020-05-21 16:41 | SUR.PHASEII ---
[address] lucero of xray report, report is ggod, pt ok to be discjharged and drink/eat. pt will follow up with oncology
== END 2020-05-21 16:15 | disposition home or self-care (01) ==
PROVIDERS: PCP Family Medicine; Visit Provider Surgery
PROC: (CPT 36561; principal; 2020-05-21 14:00)
DX: C34.92 Malignant neoplasm of unspecified part of left bronchus or lung (principal); I10 Essential (primary) hypertension; I25.10 Atherosclerotic heart disease of native coronary artery without angina pectoris; J44.9 Chronic obstructive pulmonary disease, unspecified; D64.9 Anemia, unspecified; I73.9 Peripheral vascular disease, unspecified; I71.2 Thoracic aortic aneurysm, without rupture; Z95.828 Presence of other vascular implants and grafts; Z95.5 Presence of coronary angioplasty implant and graft; F17.210 Nicotine dependence, cigarettes, uncomplicated; Z79.82 Long term (current) use of aspirin
CPT/HCPCS: 36561; 36415; 77001; 85610; 85730; C1788; C9803; J0690; J1644; J2704; J3010; J7030; J7120; U0003; U0005

== ENCOUNTER 2020-06-04 16:10 | Inpatient (IN) | payer MEDICARE, SELFPAY ==
--- NOTE | ~2020-06-04 | XR_ITS ---
EXAMINATION: XR chest 1V portable EXAM DATE: 06/07/2020 09:20 INDICATION: Persistent cough. TECHNIQUE: Portable AP frontal chest x-ray was obtained. Comparison is made to prior examination from 05/21/2020. FINDINGS: Patient has developed subsegmental left upper lobe consolidation. Could be bacterial pneumo eddi superimposed on radiation fibrosis. Development of small left pleural effusion. There is chronic hyperinflation. Right-sided portacatheter. Descending thoracic aortic endograft. No pneumothorax. Car diomediastinal silhouette is normal. The bones are osteopenic. There are bony degenerative changes. IMPRESSION: 1. Development of left upper lobe segmental consolidation, could be bacterial pneumonia and superim posed radiation fibrosis. 2. Development of small left pleural effusion. Reviewed, dictated and finalized at location A. IMPRESSION: 1. Development of left upper lobe segmental consolidation, could be bacterial pneumonia and superimposed radiation fibrosis. 2. Development of small left pleural effusion.
--- NOTE | ~2020-06-04 | XR_ITS ---
EXAMINATION: XR chest 1V portable DATE: 06/09/2020 08:43 INDICATION: Pneumonia TECHNIQUE: frontal view of the chest was obtained. COMPARISON: Chest radiograph dated 06/07/2018 FINDINGS: Interval increase in size of regions of consolidation and adjacent patchy airspace opacities in the l eft upper and lower lobes consistent with worsening pneumonia. There is a superimposed increasing int erstitial pattern with peripheral Mee B-lines in the right lung consistent with worsening pulmonar y edema. Small left and tiny right pleural effusions. No pneumothorax. Heart size is normal. Endolumi nal stent grafting along the descending thoracic aorta. Calcified right hilar and mediastinal lymph n odes consistent with old granulomatous disease. Right internal jugular central venous port catheter w ith distal tip near the superior cavoatrial junction. IMPRESSION: 1. Increasing consolidation in the left upper and lower lobes consistent with worsening pneumonia. 2. Increasing pulmonary edema with increasing small left and tiny right pleural effusions. Reviewed, dictated and finalized at location A. IMPRESSION: 1. Increasing consolidation in the left upper and lower lobes consistent with w orsening pneumonia. 2. Increasing pulmonary edema with increasing small left and tiny right pleural effusions.
--- NOTE | ~2020-06-04 | XR_ITS ---
XR chest 1V portable 06/11/2020 05:55 Indication: Pneumonia. Dyspnea. Procedure: AP portable chest Comparison: Comparison to multiple prior studies sequentially, with oldest reviewed study dated 09/16. Findings: Increasing near complete consolidation of the left hemithorax. Increasing airspace disease throughout the right lung. Possible small effusions. Portacatheter tip in the SVC. Endoluminal stent in the descending thoracic aorta. No pneumothorax. Impression: 1: Worsening bilateral airspace disease, compatible with progression of pneumonia. Near-complete cons olidation of the left lung. Reviewed, dictated and finalized at location A. Impression: 1: Worsening bilateral airspace disease, compatible with progression of pneumon ia. Near-complete consolidation of the left lung.
--- NOTE | ~2020-06-04 | CT_ITS ---
EXAMINATION: CT abdomen pelvis w con DATE: 06/04/2020 17:40 INDICATION: Nausea, vomiting, diarrhea, weakness. Metastatic lung cancer. TECHNIQUE: Computed tomography (CT) of the abdomen and pelvis was performed with 95 cc Omnipaque 350 intravenous contrast. Automated exposure control and iterative reconstruction technique were employed . Exam dose: 169.48 mGy-cm total exam DLP. COMPARISON: 04/17/2020 PET/CT scan FINDINGS: Emphysematous changes are noted. There is minimal infiltrate or atelectasis in the dependen t lower lobes. Heart size is within normal limits. Small left pleural effusion. Status post cholecystectomy. There is air in the hepatic bile ducts. No bile duct dilatation is evide nt. No hepatic space-occupying mass lesion. There are multiple splenic calcified granulomas. No splenomeg juan. No adrenal or pancreatic mass lesion is evident. Multiple bilateral renal cysts no hydroureteronephrosis. The urinary bladder is evacuated and not opt imally demonstrated. There are numerous diverticula of the sigmoid colon; no CT evidence of diverticulitis. No bowel obstr uction, bowel wall thickening, pneumatosis or intraperitoneal free air is evident. There is extensive calcification of the abdominal aorta and iliac arteries. Subacute anterior right ninth and 10th rib fractures. Diffuse osteopenia. Mild compression fracture deformity of T12. No suspicious osteolytic or osteoblastic lesions are note d. IMPRESSION: Small left pleural effusion Minimal dependent atelectasis in the lower lobes Status post cholecystectomy Chronic pneumobilia Multiple bilateral renal cysts Diverticulosis of the sigmoid colon Subacute anterior right ninth and 10th rib fractures Mild compression fracture deformity of T12 Reviewed, dictated and finalized at Location A. Reviewed, dictated and finalized at location A.
--- NOTE | 2020-06-04 16:27 | ED.GENADULT ---
HPI - General Adult General Chief complaint: Nausea/Vomiting/Diarrhea <Nikki Bliss PA-C - Last Filed: 06/04/20 19:38> Stated complaint: diarrhea <Nikki Bliss PA-C - Last Filed: 06/04/20 19:38> Time Seen by Provider: 06/04/20 16:25 <Nikki Bliss PA-C - Last Filed: 06/04/20 19:38> Source: patient <ALANNA Trujillo Last Filed: 06/04/20 19:38> Mode of arrival: ambulatory <Nikki Bliss PA-C - Last Filed: 06/04/20 19:38> Limitations: no limitations <Nikki Bliss PA-C - Last Filed: 06/04/20 19:38> History of Present Illness HPI narrative: This 75-year-old female came in today with complaint of lightheadedness, nausea and diarrhea. She was also concerned that her oxygen level was not staying up at home, she is baseline 3 L/min nasal cannula. She has had 1 round of chemotherapy for her non-small cell lung cancer diagnosed earlier this month. She she states that she has had diarrhea prior to starting her treatment, occasionally with blood in it. She has not eaten in a couple days because she did not want to be bothered by the diarrhea. She is concerned that she may fall at home, and she lives alone. <Nikki Bliss PA-C - Last Filed: 06/04/20 19:38> Onset (ago): day(s) <Nikki Bliss PA-C - Last Filed: 06/04/20 19:38> Relieving factors: none <ALANNA Trujillo Last Filed: 06/04/20 19:38> Related Data Home medications: Home Medications Medication Instructions Recorded Confirmed aspirin [Aspirin Childrens] 81 mg PO DAILY 01/13/19 05/30/20 multivitamin 1 tablet PO DAILY 01/13/19 05/30/20 ferrous sulfate 324 mg PO DAILY 03/10/19 05/30/20 benzonatate 100 mg capsule 100 mg PO BID PRN 05/04/20 05/30/20 lisinopril 20 mg tablet 20 mg PO DAILY 05/04/20 05/30/20 metoprolol succinate 50 mg 50 mg PO DAILY 05/04/20 05/30/20 tablet,extended release 24 hr escitalopram oxalate 20 mg DAILY 05/18/20 05/30/20 <Nikki Bliss PA-C - Last Filed: 06/04/20 19:38> Allergies/adverse reactions: Allergies Allergy/AdvReac Type Severity Reaction Status Date / Time naproxen Allergy Mild Hives Verified 05/30/20 13:25 <Nikki Bliss PA-C - Last Filed: 06/04/20 19:38> Review of Systems Constitutional: Constitutional: Reports no additional constitutional complaints <Nikki Bliss PA-C - Last Filed: 06/04/20 19:38> Eyes: Eyes: Reports no additional eye complaints <Nikki Bliss PA-C - Last Filed: 06/04/20 19:38> ENT: Reports sore throat <Nikki Bliss PA-C - Last Filed: 06/04/20 19:38> Cardiovascular: Cardiovascular: Reports no additional cardiovascular complaints <Nikki Bliss PA-C - Last Filed: 06/04/20 19:38> Respiratory: Respiratory: Reports chest congestion, Reports cough and Reports dyspnea <Nikki Bliss PA-C - Last Filed: 06/04/20 19:38> Gastrointestinal: Gastrointestinal: Reports diarrhea and Reports nausea <Nikki Bliss PA-C - Last Filed: 06/04/20 19:38> Genitourinary: Genitourinary: Reports no additional female genitourinary complaints <Nikki Bliss PA-C - Last Filed: 06/04/20 19:38> Musculoskeletal: Musculoskeletal: Reports no additional musculoskeletal complaints <Nikki Bliss PA-C - Last Filed: 06/04/20 19:38> [facility] Past Medical History Medical History: Medical History Chronic anemia COPD (chronic obstructive pulmonary disease) Coronary artery disease involving [place] heart without angina pectoris Essential hypertension History of stent insertion of renal artery NSCLC of left lung PAD (peripheral artery disease) Thoracic aortic aneurysm without rupture <Nikki Bliss PA-C - Last Filed: 06/04/20 19:38> Surgical History Surgical History: Surgical History History of coronary artery stent placement History of pancreatic surgery S/P [facility]-BSO <Nikki Irbahim
[2020-06-04 16:36] VITALS: BP 91/48; PULSE 92; RESP 24; TEMP 36.7; O2SAT 100
[2020-06-04 16:58] LABS: Basophils Percent Auto 0.2 % (0.2-1.2); Eosinophils Absolute Auto 0.2 K/mm3 (0-0.3); Eosinophils Percent Auto 3.4 % (0-4.4); Hematocrit 32.6 % (37.0-47.0); Hemoglobin 10.2 g/dL (12.0-15.0); Immature Granulocyte Absolute 0.08 K/mm3 (0.00-0.031); Immature Granulocyte Percent A 1.4 % (0-0.5); Lymphocytes Percent Auto 5.3 % (18.3-44.2); Mean Corpuscular HGB Conc 31.3 g/dl (32-36); Mean Corpuscular Hemoglobin 31.9 pg (26-34); Mean Corpuscular Volume 101.9 fl (80-100); Mean Platelet Volume 10.3 fl (7.4-10.4); Monocytes Absolute Auto 0.1 K/mm3 (0.1-0.6); Monocytes Percent Auto 1.1 % (2.6-8.5); Neutrophils Percent Auto 88.6 % (45.5-73.1); Platelet Count Result 285 k/mm3 (150-375); Red Cell Distribution Width 14.2 % (11.5-14.5); White Blood Count 5.6 K/mm3 (4.5-10.0)
[2020-06-04 17:03] LABS: Add Urine Microscopic? YES; Appearance Urine Clear (Clear); Bacteria Urine Trace /hpf; Bilirubin Urine Negative (Negative); Blood Urine Negative (Negative); Color Urine Yellow (Yellow); Glucose Urine UA Negative (Negative); Hyaline Casts Urine 15-19 /lpf; Ketones Urine Negative (Negative); Leukocyte Esterase Ur 2+ LEU/UL (Negative); Mucus Urine Rare /lpf; Nitrate Urine Negative (Negative); Protein Urine 1+ mg/dL (Negative); RBC Urine 0-2 /hpf (0-2); Specific Grav Ur 1.016 (1.001-1.035); Squamous Epithelial Cell Urine Rare /hpf (Few); Transitional Epi Cells Urine Rare /hpf (None Seen); Urobilinogen Urine Negative mg/dL (<2.0); WBC Clumps Urine Present /HPF
[2020-06-04 17:10] LABS: Alanine Aminotransferase 14 U/L (4-35); Alkaline Phosphatase 55 U/L (38-126); Anion Gap 2 mmol/L (8-16); Aspartate Amino Transferase 21 U/L (14-36); Bilirubin,Total 0.2 mg/dL (0.2-1.3); Blood Urea Nitrogen 50 mg/dL (7-17); Calcium 8.1 mg/dL (8.4-10.2); Carbon Dioxide 33 mmol/L (22-30); Chloride 100 mmol/L (98-107); Estimated CRCL calculation 31 ml/min; Estimated Glomerular Filt Rate > 60; Glucose 115 mg/dL (65-105); Lipase 78 U/L (23-300); Potassium 4.6 mmol/L (3.4-5.0); Sodium 135 mmol/L (137-145)
[2020-06-04] MEDS: SODIUM CHLORIDE 0.9% IV 1,000 ML 999 ML IV CONT (17:11)
[2020-06-04 17:13] VITALS: BP 109/47; PULSE 93; RESP 14; O2SAT 100
--- NOTE | 2020-06-04 18:12 | PC.NURSE ---
spoke to Bashir (pts daughter) w/ permission from pt, cell [phone] - pt requests we call w/ any updates
[2020-06-04 18:33] VITALS: BP 101/47; PULSE 95; RESP 15; O2SAT 98
--- NOTE | 2020-06-04 19:14 | PC.NURSE ---
report given to Paulo RODRÍGUEZ at bedside
--- NOTE | 2020-06-04 19:54 | PM.IMHP ---
H&P: HPI History of Present Illness Date/Time: 06/04/20 19:54 Chief Complaint: Generalized weakness after chemotherapy this week. Narrative: This is a pleasant 75-year-old female with known history of non-small cell lung cancer who presented to the hospital with complaint of generalized weakness, nausea, and diarrhea for the past few days. The patient mentions that she had diarrhea even before she had her 1st round of chemotherapy this past Thursday. She has been taking Imodium for her diarrhea. Before taking Imodium she was having 5-6 loose stools daily. She denies any blood in her stool and denies any vomiting. The patient continues to smoke half a pack of cigarettes a day for which she says she is trying to cut back on. Tonight the patient denies any headache, fevers, chills, worsening cough, worsening shortness of breath, abdominal pain, vomiting, dysuria, hematuria, rectal bleeding, or focal neurological deficits. The patient is known to live alone and complains that she is having a hard time with her activities of daily living after getting her chemotherapy this past week. She denies any recent antibiotic use. ER provider has consulted her paint [employer], Dr. Manriquez who has asked that we admit the patient to the hospital overnight to see if we can get her home health tomorrow. Patient has no other complaints at this time. Routine labs were obtained which were virtually unremarkable from her previous labs. The patient has not had any significant abdominal pain although CT abdomen pelvis was obtained this evening which was virtually unremarkable. The patient was treated in the emergency room this evening with oral nystatin and 1 L of IV fluids. Review of Systems Review of Systems: All systems reviewed & are unremarkable except as noted in HPI and below PMFSH Past Medical History Medical History Chronic anemia COPD (chronic obstructive pulmonary disease) Coronary artery disease involving [place] heart without angina pectoris Essential hypertension History of stent insertion of renal artery NSCLC of left lung PAD (peripheral artery disease) Thoracic aortic aneurysm without rupture Surgical History Surgical History History of coronary artery stent placement History of pancreatic surgery S/P LINSEY-BSO Family History Family History Mother Family history of gastrointestinal disorder Grandparent Cerebrovascular accident Father Family history of malignant neoplasm Social History Social History Smoking packs per day: 0.5 Smoking cigarettes per day: 10.0 Years smoked: 60 Smoking pack-years: 30.00 Smoking status: Current every day smoker Tobacco type: cigarettes Second hand tobacco smoke exposure: Yes Smoking end date: 03/23/18 Additional smoking assessment comments: STATES 1/2-1PK/DAY/60YRS Alcohol intake: current Drinks per week: 2 Substance use: never Substance use type: does not use Gender identity (if verbalized by the patient): Female Spiritual care concerns: No Agree to blood products: Yes Meds Home Medications and Allergies Home Medications Medication Instructions Recorded Confirmed Type aspirin [Aspirin Childrens] 81 mg PO DAILY 01/13/19 05/30/20 History multivitamin 1 tablet PO DAILY 01/13/19 05/30/20 History ferrous sulfate 324 mg PO DAILY 03/10/19 05/30/20 History ipratropium 0.5 mg-albuterol 3 mg 3 ml INHALATION Q6H PRN #360 ml 06/30/19 05/30/20 Rx (2.5 mg base)/3 mL nebulization soln hydrocodone-acetaminophen 1 tablet PO Q6H PRN #30 tablet 11/08/19 05/30/20 Rx fluticasone fur. 100 mcg-umeclid 1 inh INHALATION Q24H #60 ea 01/12/20 05/30/20 Rx 62.5 mcg-vilant 25 mcg inhalat.powder trazodone 50 mg tablet See Rx Instructions .ROUTE 03/19/20
[2020-06-04 20:46] VITALS: BP 101/60; PULSE 88; RESP 24; O2SAT 98
--- NOTE | 2020-06-04 21:10 | ADMGEN ---
This patient, Demetria Salgado, was admitted to Medical Room 343-01. Patient/family oriented to hospital policies and general routines including ID bracelet, bed and alarms, visiting hours, pain management, procedures, bathroom and other care routines, personal items, smoking policy, room service/diet, and visiting hours. Information on how to activate the Rapid Response Team has been discussed. Patient/Family are encouraged to report perceived risks to care and to ask questions if they do not understand what they are told or what they should do.
[2020-06-04 22:09] VITALS: BP 123/50; PULSE 87; RESP 16; TEMP 36.2; O2SAT 100
[2020-06-04] MEDS: NICOTINE (*PBKC) 14 MG PATCH 1 PATCH TRANSDERM (22:09)
[2020-06-04 22:10] VITALS: BMI 17.0
[2020-06-04] MEDS: NYSTATIN 100,000 UNITS/ML SUSP 5 ML ORAL.SUSP PO (22:10)
[2020-06-04] MEDS: SODIUM CHLORIDE 0.9% IV 1,000 ML 75 ML IV CONT (22:16)
[2020-06-05] VITALS (7 sets, daily range): BP systolic 109–153; BP diastolic 48–63; PULSE 84–101; RESP 13–18; TEMP 36.5–37; O2SAT 94–100; BMI 17.0
--- NOTE | 2020-06-05 04:26 | PC.NURSE ---
pt missed hat
[2020-06-05] MEDS: NICOTINE (*PBKC) 14 MG PATCH 1 PATCH TRANSDERM (09:17)
[2020-06-05] MEDS: PANTOPRAZOLE SOD SESQUIHYDRATE 20 MG TAB BY MOUTH (09:17)
[2020-06-05] MEDS: MULTIVITAMINS THERAPEUTIC TAB (*BKC) 1 TABLET PO (09:17)
[2020-06-05] MEDS: CYANOCOBALAMIN 1,000 MCG TABLET 1000 MCG PO (09:17)
[2020-06-05] MEDS: ESCITALOPRAM OXALATE 10 MG TABLET 20 MG BY MOUTH (09:17)
[2020-06-05] MEDS: FERROUS SULFATE 324 MG TABLET PO (09:17)
[2020-06-05] MEDS: CHOLECALCIFEROL 1,000 UNITS TABLET 2000 UNITS PO (09:17)
[2020-06-05] MEDS: NYSTATIN 100,000 UNITS/ML SUSP 5 ML ORAL.SUSP PO ×4 (09:17→21:24)
[2020-06-05] MEDS: ACETAMINOPHEN 325 MG TABLET 650 MG PO (09:40)
[2020-06-05] MEDS: CENTRAL LINE FLUSH 10 ML IV PUSH ×2 (13:01→21:24)
--- NOTE | 2020-06-05 13:15 | PC.NURSE ---
Observed care provided by [facility] Student Matt Winslow [phone]
--- NOTE | 2020-06-05 13:38 | PM.IMPN ---
Progress Note: A&P Assessment and Plan (1) Weakness generalized: Code(s): R53.1 - Weakness Status: Acute Assessment and Plan: The patient has been placed in observation status. Continue light IV hydration overnight. Patient's generalized weakness is likely secondary to deconditioning, chronic illnesses, and recent chemotherapy. PT OT evaluation in a.m.. 06/05/20 Patient is 75-year-old female with history of non-small cell lung cancer seen by oncologist, N/C department with a complaint generalized weakness nausea and diarrhea, patient has had several episodes of diarrhea see does take Imodium for some relief, patient had a CT scan of abdomen and not show any pathology to attribute persistent diarrhea, we have consulted GI for further recommendation, patient states did receive 1st round chemotherapy May 31, however her diarrhea had started prior to the chemotherapy, patient denies any abdominal pain fever or chills, patient states she had a 4 BM this morning, will start the patient on Imodium while in the hospital, will have PT OT evaluate the patient and patient will benefit going home with home health to help her with her ADLs. Patient's BMI is 17 will consult dietitian for nutritional recommendations (2) Oral pharyngeal candidiasis: Code(s): B37.0 - Candidal stomatitis Status: Acute Assessment and Plan: Likely secondary to chemotherapy. Continue nystatin oral swish and swallow. (3) Diarrhea: Qualifiers: Diarrhea type: unspecified type Qualified Code(s): R19.7 - Diarrhea, unspecified Code(s): R19.7 - Diarrhea, unspecified Status: Acute Assessment and Plan: Patient's acute diarrhea was likely exacerbated by chemotherapy. Continue IV hydration. Supportive care. I recommend discontinue Imodium. (4) Abnormal urinalysis: Code(s): R82.90 - Unspecified abnormal findings in urine Status: Acute Assessment and Plan: The patient denies any urinary symptoms. consider contaminant vs. asymptomatic bacteriuria. urine culture pending. (5) Chronic anemia: Code(s): D64.9 - Anemia, unspecified Status: Chronic Assessment and Plan: Chronic anemia is likely multifactorial. No signs of acute blood loss. Monitor H&H, transfuse p.r.n.. (6) NSCLC of left lung: Code(s): C34.92 - Malignant neoplasm of unspecified part of left bronchus or lung Status: Chronic Assessment and Plan: Hematology consult in a.m. Dr. Manriquez. Continue hematology recommendations. (7) Essential hypertension: Code(s): I10 - Essential (primary) hypertension Status: Chronic Assessment and Plan: Stable. Blood pressure has been soft this evening. Resume metoprolol lisinopril when appropriate. (8) COPD (chronic obstructive pulmonary disease): Qualifiers: COPD type: unspecified COPD Qualified Code(s): J44.9 - Chronic obstructive pulmonary disease, unspecified Code(s): J44.9 - Chronic obstructive pulmonary disease, unspecified Status: Chronic Assessment and Plan: Continue bronchodilators as needed. (9) Coronary artery disease involving [place] heart without angina pectoris: Qualifiers: Coronary Disease-Associated Artery/Lesion type: unspecified vessel or lesion type Qualified Code(s): I25.10 - Atherosclerotic heart disease of [place] coronary artery without angina pectoris Code(s): I25.10 - Atherosclerotic heart disease of [place] coronary artery without angina pectoris Status: Chronic Assessment and Plan: No chest pain tonight. Continue aspirin and beta-january. (10) Tobacco dependence: Code(s): F17.200 - Nicotine dependence, unspecified, uncomplicated Status: Chronic Assessment and Plan: Dr. Uriarte counseled the patient on tobacco cessation for 4 minutes. The patient has verbalized her understanding and agreement. She does desire nicotine patch tonight.
--- NOTE | 2020-06-05 14:21 | PCNSR ---
On 06/05/20, the student, Dimple Capellan, provided care and completed [employer] documentation on this patient. Patient now agreeable to try supplement. I have reviewed the student's documentation and agree with the findings.
[2020-06-05] MEDS: LOPERAMIDE HCL 2 MG CAPSULE PO ×2 (15:17→23:37)
[2020-06-05] MEDS: lisinopriL 20 MG TABLET PO (21:23)
[2020-06-05] MEDS: traZODone HCL 50 MG TABLET PO (21:23)
[2020-06-06] VITALS (8 sets, daily range): BP systolic 92–123; BP diastolic 45–57; PULSE 72–110; RESP 18–20; TEMP 36.7–36.9; O2SAT 93–100
[2020-06-06] MEDS: CENTRAL LINE FLUSH 10 ML IV PUSH ×3 (04:48→21:50)
[2020-06-06 07:16] LABS: Hematocrit 31.4 % (37.0-47.0); Hemoglobin 9.7 g/dL (12.0-15.0); Mean Corpuscular HGB Conc 30.9 g/dl (32-36); Mean Corpuscular Hemoglobin 32.1 pg (26-34); Mean Platelet Volume 11.3 fl (7.4-10.4); Platelet Count Result 217 k/mm3 (150-375); Red Blood Count 3.02 M/mm3 (4.2-5.4); White Blood Count 4.2 K/mm3 (4.5-10.0)
[2020-06-06 07:28] LABS: Anion Gap -1 mmol/L (8-16); Blood Urea Nitrogen 23 mg/dL (7-17); Calcium 7.6 mg/dL (8.4-10.2); Carbon Dioxide 34 mmol/L (22-30); Chloride 105 mmol/L (98-107); Estimated CRCL calculation 38 ml/min; Estimated Glomerular Filt Rate > 60; Glucose 92 mg/dL (65-105); Magnesium 1.6 mg/dL (1.6-2.3); Potassium 4.2 mmol/L (3.4-5.0); Sodium 138 mmol/L (137-145)
[2020-06-06] MEDS: NICOTINE (*PBKC) 14 MG PATCH 1 PATCH TRANSDERM (08:38)
[2020-06-06] MEDS: NYSTATIN 100,000 UNITS/ML SUSP 5 ML ORAL.SUSP PO ×4 (08:39→20:48)
[2020-06-06] MEDS: ESCITALOPRAM OXALATE 10 MG TABLET 20 MG BY MOUTH (08:41)
[2020-06-06] MEDS: MULTIVITAMINS THERAPEUTIC TAB (*BKC) 1 TABLET PO (08:42)
[2020-06-06] MEDS: CHOLECALCIFEROL 1,000 UNITS TABLET 2000 UNITS PO (08:42)
[2020-06-06] MEDS: PANTOPRAZOLE SOD SESQUIHYDRATE 20 MG TAB BY MOUTH (08:42)
[2020-06-06] MEDS: FERROUS SULFATE 324 MG TABLET PO (08:42)
[2020-06-06] MEDS: CYANOCOBALAMIN 1,000 MCG TABLET 1000 MCG PO (08:42)
[2020-06-06] MEDS: LOPERAMIDE HCL 2 MG CAPSULE PO ×2 (08:46→19:33)
--- NOTE | 2020-06-06 09:09 | PCOTNOTE ---
Attempted therapy session with patient, but patient refused, stating she didn't feel like doing anything today as she had a terrible night. Patient refused all ADLs, exercises and transfers.
[2020-06-06] MEDS: METOPROLOL TARTRATE 12.5 MG TABLET PO (10:13)
[2020-06-06] MEDS: THIAMINE HCL INJ 100 MG, FOLIC ACID INJ 1 MG, MULTIVITAMINS-12 INJ VIAL 1 5 ML, MULTIVI... IV CONT (10:17)
--- NOTE | 2020-06-06 12:18 | PM.IMPN ---
Progress Note: A&P Assessment and Plan (1) Weakness generalized: Code(s): R53.1 - Weakness Status: Acute Assessment and Plan: The patient has been placed in observation status. Continue light IV hydration overnight. Patient's generalized weakness is likely secondary to deconditioning, chronic illnesses, and recent chemotherapy. PT OT evaluation in a.m.. 06/06/20 12:18 06/05 Patient is 75-year-old female with history of non-small cell lung cancer seen by oncologist, [facility] department with a complaint generalized weakness nausea and diarrhea, patient has had several episodes of diarrhea see does take Imodium for some relief, patient had a CT scan of abdomen and not show any pathology to attribute persistent diarrhea, we have consulted GI for further recommendation, patient states did receive 1st round chemotherapy May 31, however her diarrhea had started prior to the chemotherapy, patient denies any abdominal pain fever or chills, patient states she had a 4 BM this morning, will start the patient on Imodium while in the hospital, will have PT OT evaluate the patient and patient will benefit going home with home health to help her with her ADLs. Patient's BMI is 17 will consult dietitian for nutritional recommendations. 06/06 Patient was started on Imodium yesterday stats its help control BM for little while then start soon after, states poor appetite and does not want to drink water, patient appear dehydrated and her blood pressure is soft, we are holding her BP meds, started patient on IVF, GI has differed to see the patient until outpatient, will consult plant facilities technician, will have PT/OT work with patient. patient is dehydrated due to persistent diarrhea and poor appetite started on IVF and monitoring BP. Further recommendation to follow. (2) Oral pharyngeal candidiasis: Code(s): B37.0 - Candidal stomatitis Status: Acute Assessment and Plan: Likely secondary to chemotherapy. Continue nystatin oral swish and swallow. (3) Diarrhea: Qualifiers: Diarrhea type: unspecified type Qualified Code(s): R19.7 - Diarrhea, unspecified Code(s): R19.7 - Diarrhea, unspecified Status: Acute Assessment and Plan: Patient's acute diarrhea was likely exacerbated by chemotherapy. Continue IV hydration. Supportive care. I recommend discontinue Imodium. (4) Abnormal urinalysis: Code(s): R82.90 - Unspecified abnormal findings in urine Status: Acute Assessment and Plan: The patient denies any urinary symptoms. consider contaminant vs. asymptomatic bacteriuria. urine culture pending. (5) Chronic anemia: Code(s): D64.9 - Anemia, unspecified Status: Chronic Assessment and Plan: Chronic anemia is likely multifactorial. No signs of acute blood loss. Monitor H&H, transfuse p.r.n.. (6) NSCLC of left lung: Code(s): C34.92 - Malignant neoplasm of unspecified part of left bronchus or lung Status: Chronic Assessment and Plan: Hematology consult in a.Nicolas Manriquez. Continue hematology recommendations. (7) Essential hypertension: Code(s): I10 - Essential (primary) hypertension Status: Chronic Assessment and Plan: Stable. Blood pressure has been soft this evening. Resume metoprolol lisinopril when appropriate. (8) COPD (chronic obstructive pulmonary disease): Qualifiers: COPD type: unspecified COPD Qualified Code(s): J44.9 - Chronic obstructive pulmonary disease, unspecified Code(s): J44.9 - Chronic obstructive pulmonary disease, unspecified Status: Chronic Assessment and Plan: Continue bronchodilators as needed. (9) Coronary artery disease involving [place] heart without angina pectoris: Qualifiers: Coronary Disease-Associated Artery/Lesion type: unspecified vessel or lesion type Qualified Code(s): I25.10 - Atherosclerotic heart disease of [place] coronary artery without angina pec
--- NOTE | 2020-06-06 14:24 | PCPTNOTE ---
Patient refused therapy this date. Patient reports she did not sleep well and does not want to do therapy.
--- NOTE | 2020-06-06 17:20 | PDONCCN ---
HPI - Date of Consult Date/Time: 06/06/20 17:20 Requesting Physician: Jesús Uriarte MD Primary Care Provider: Nicolette Lemus, DO - Consult Narrative Reason for consult: Metastatic non-small cell lung cancer Narrative: Demetria Salgado is a 75 year old female who was originally diagnosed to early stage non-small cell lung cancer adenocarcinoma in histology and received radiation therapy treatment in the past. Subsequently she that was diagnosed with metastatic non-small cell lung cancer with bilateral lung involvement and started for sound of chemotherapy with carboplatin and Alimta and Keytruda on May 30, 2020. She came into the hospital with diarrhea which she is started even before the chemotherapy. She had was complaining of generalized tiredness and fatigue along with dehydration. She denies any fevers and chills. Denies any abdominal pain and chest pain. She was admitted to the hospital for the treatment of her diarrhea and dehydration. Review of Systems - Review of Systems All systems reviewed & are unremarkable except as noted in [facility] and [facility] Medical History: Medical History (Last Reviewed 06/04/20 @ 20:06 by Jesús Uriarte MD) Chronic anemia COPD (chronic obstructive pulmonary disease) Coronary artery disease involving [place] heart without angina pectoris Essential hypertension History of stent insertion of renal artery NSCLC of left lung PAD (peripheral artery disease) Thoracic aortic aneurysm without rupture Surgical History: Surgical History (Last Reviewed 06/04/20 @ 20:06 by Jesús Uriarte MD) History of coronary artery stent placement History of pancreatic surgery S/P LINSEY-BSO Family History: Family History (Last Reviewed 06/04/20 @ 22:01 by Yovany Don RN) Mother Family history of gastrointestinal disorder Grandparent Cerebrovascular accident Father Family history of malignant neoplasm - Social History Social History: Social History (Last Reviewed 06/04/20 @ 20:06 by Jesús Uriarte MD) Gender Identity: Gender identity (if verbalized by the patient): Female Alcohol Use: Alcohol intake: current Drinks per week: 2 Substance Use: Substance use: never Substance use type: does not use Others: Spiritual care concerns: No Agree to blood products: Yes Smoking Status: Smoking status: Current every day smoker Second hand tobacco smoke exposure: Yes Smoking Pack-years: Smoking packs per day: 0.5 Smoking cigarettes per day: 10.0 Years smoked: 60 Smoking pack-years: 30.00 Comments: Additional smoking assessment comments: STATES 1/2-1PK/DAY/60YRS Meds Home Medications Medication Instructions Recorded Confirmed Type aspirin [Aspirin Childrens] 81 mg PO DAILY 01/13/19 06/04/20 History multivitamin 1 tablet PO DAILY 01/13/19 06/04/20 History ferrous sulfate 324 mg PO DAILY 03/10/19 06/04/20 History hydrocodone-acetaminophen 1 tablet PO Q6H PRN #30 tablet 11/08/19 06/04/20 Rx fluticasone fur. 100 mcg-umeclid 1 inh INHALATION Q24H #60 ea 01/12/20 06/04/20 Rx 62.5 mcg-vilant 25 mcg inhalat.powder trazodone 50 mg tablet See Rx Instructions .ROUTE 03/19/20 06/04/20 Rx .COMPLEX #90 tablet pantoprazole 20 mg tablet,delayed See Rx Instructions .ROUTE 04/16/20 06/04/20 Rx release .COMPLEX #90 tablet lisinopril 20 mg tablet 20 mg PO HS 05/04/20 06/04/20 History metoprolol succinate 50 mg 50 mg PO DAILY 05/04/20 06/04/20 History tablet,extended release 24 hr escitalopram oxalate 20 mg DAILY 05/18/20 06/04/20 History furosemide 20 mg tablet 20 mg PO QAM #30 tablet 05/25/20 06/04/20 Rx potassium chloride 10 mEq 10 meq PO DAILY #30 tablet 05/25/20 06/04/20 Rx tablet,extended release B12 1 mg PO DAILY 06/04/20 06/04/20 History cholecalciferol (vitamin D3) 50 mcg PO DAILY 06/04/20 06/04/20 History Allergies Allergy/AdvReac Type Severity Reaction Status Date / Time naprox
[2020-06-06] MEDS: ACETAMINOPHEN 325 MG TABLET 650 MG PO (19:33)
[2020-06-06] MEDS: LACTATED RINGERS 1,000 ML 100 ML IV CONT (20:50)
--- NOTE | 2020-06-06 23:47 | ECG_ITS ---
Measurements Intervals [place] Rate: 116 P: 74 MN: 128 QRS: 70 QRSD: 82 T: 89 QT: 289 QTc: 401 Interpretive Statements SINUS TACHYCARDIA ATRIAL PREMATURE COMPLEX ANTEROSEPTAL INFARCT, AGE INDETERMINATE BORDERLINE T WAVE ABNORMALITY- HIGH LATERAL LEADS ABNORMAL ECG Electronically Signed On 06-07-2020 7:19:09 CDT by Ac Lynn D.O.
[2020-06-07] VITALS (8 sets, daily range): BP systolic 110–125; BP diastolic 54–68; PULSE 90–112; RESP 14–18; TEMP 36.6–37.3; O2SAT 94–100
[2020-06-07] MEDS: LACTATED RINGERS 250 ML 999 ML IV CONT (00:15)
[2020-06-07] MEDS: LOPERAMIDE HCL 2 MG CAPSULE PO ×2 (03:17→12:01)
[2020-06-07 06:19] LABS: Anion Gap -3 mmol/L (8-16); Blood Urea Nitrogen 17 mg/dL (7-17); Calcium 7.6 mg/dL (8.4-10.2); Carbon Dioxide 34 mmol/L (22-30); Chloride 105 mmol/L (98-107); Estimated CRCL calculation 44 ml/min; Estimated Glomerular Filt Rate > 60; Glucose 100 mg/dL (65-105); Potassium 3.9 mmol/L (3.4-5.0); Sodium 136 mmol/L (137-145)
[2020-06-07 06:25] LABS: Hematocrit 27.7 % (37.0-47.0); Hemoglobin 8.5 g/dL (12.0-15.0); Mean Corpuscular HGB Conc 30.7 g/dl (32-36); Mean Corpuscular Hemoglobin 31.6 pg (26-34); Platelet Count Result 144 k/mm3 (150-375); Red Blood Count 2.69 M/mm3 (4.2-5.4); Red Cell Distribution Width 13.9 % (11.5-14.5); White Blood Count 2.1 K/mm3 (4.5-10.0)
[2020-06-07] MEDS: CENTRAL LINE FLUSH 10 ML IV PUSH ×3 (07:25→21:13)
[2020-06-07] MEDS: LACTATED RINGERS 1,000 ML 100 ML IV CONT ×2 (07:25→16:54)
[2020-06-07] MEDS: NYSTATIN 100,000 UNITS/ML SUSP 5 ML ORAL.SUSP PO ×4 (09:51→21:14)
[2020-06-07] MEDS: METOPROLOL SUCCINATE EXT REL 50 MG TABCR PO (09:51)
[2020-06-07] MEDS: FERROUS SULFATE 324 MG TABLET PO (09:51)
[2020-06-07] MEDS: CHOLECALCIFEROL 1,000 UNITS TABLET 2000 UNITS PO (09:51)
[2020-06-07] MEDS: CYANOCOBALAMIN 1,000 MCG TABLET 1000 MCG PO (09:52)
[2020-06-07] MEDS: BENZONATATE 100 MG CAPSULE PO ×3 (09:52→16:56)
[2020-06-07] MEDS: NICOTINE (*PBKC) 14 MG PATCH 1 PATCH TRANSDERM (09:52)
[2020-06-07] MEDS: PANTOPRAZOLE SOD SESQUIHYDRATE 20 MG TAB BY MOUTH (09:52)
[2020-06-07] MEDS: ESCITALOPRAM OXALATE 10 MG TABLET 20 MG BY MOUTH (09:52)
[2020-06-07] MEDS: FUROSEMIDE 20 MG TABLET PO (09:52)
[2020-06-07] MEDS: MULTIVITAMINS THERAPEUTIC TAB (*BKC) 1 TABLET PO (09:52)
--- NOTE | 2020-06-07 13:43 | PM.IMPN ---
Progress Note: A&P Assessment and Plan (1) Weakness generalized: Code(s): R53.1 - Weakness Status: Acute Assessment and Plan: The patient has been placed in observation status. Continue light IV hydration overnight. Patient's generalized weakness is likely secondary to deconditioning, chronic illnesses, and recent chemotherapy. PT OT evaluation in a.m.. 06/07/20 13:43 06/05 Patient is 75-year-old female with history of non-small cell lung cancer seen by oncologist, N/C department with a complaint generalized weakness nausea and diarrhea, patient has had several episodes of diarrhea see does take Imodium for some relief, patient had a CT scan of abdomen and not show any pathology to attribute persistent diarrhea, we have consulted GI for further recommendation, patient states did receive 1st round chemotherapy May 31, however her diarrhea had started prior to the chemotherapy, patient denies any abdominal pain fever or chills, patient states she had a 4 BM this morning, will start the patient on Imodium while in the hospital, will have PT OT evaluate the patient and patient will benefit going home with home health to help her with her ADLs. Patient's BMI is 17 will consult dietitian for nutritional recommendations. 06/06 Patient was started on Imodium yesterday stats its help control BM for little while then start soon after, states poor appetite and does not want to drink water, patient appear dehydrated and her blood pressure is soft, we are holding her BP meds, started patient on IVF, GI has differed to see the patient until outpatient, will consult general i farmworker, will have PT/OT work with patient. patient is dehydrated due to persistent diarrhea and poor appetite started on IVF and monitoring BP. Further recommendation to follow. 06/07 today patient still complains of persistent diarrhea, fatigue poor appetite and persistent cough to further evaluate patient had a chest x-ray which showed development of left upper lobe segmental consolidation, could be bacterial pneumonia and superimposed radiation fibrosis. I spoke with radiologist comparing recent chest x-ray and he believes patient does have a consolidation and pneumonia will start the patient on Rocephin azithromycin, continue to monitor and further recommendation to follow. (2) Oral pharyngeal candidiasis: Code(s): B37.0 - Candidal stomatitis Status: Acute Assessment and Plan: Likely secondary to chemotherapy. Continue nystatin oral swish and swallow. (3) Diarrhea: Qualifiers: Diarrhea type: unspecified type Qualified Code(s): R19.7 - Diarrhea, unspecified Code(s): R19.7 - Diarrhea, unspecified Status: Acute Assessment and Plan: Patient's acute diarrhea was likely exacerbated by chemotherapy. Continue IV hydration. Supportive care. I recommend discontinue Imodium. (4) Abnormal urinalysis: Code(s): R82.90 - Unspecified abnormal findings in urine Status: Acute Assessment and Plan: The patient denies any urinary symptoms. consider contaminant vs. asymptomatic bacteriuria. urine culture pending. (5) Chronic anemia: Code(s): D64.9 - Anemia, unspecified Status: Chronic Assessment and Plan: Chronic anemia is likely multifactorial. No signs of acute blood loss. Monitor H&H, transfuse p.r.n.. (6) NSCLC of left lung: Code(s): C34.92 - Malignant neoplasm of unspecified part of left bronchus or lung Status: Chronic Assessment and Plan: Hematology consult in a.mNicolas Manriquez. Continue hematology recommendations. (7) Essential hypertension: Code(s): I10 - Essential (primary) hypertension Status: Chronic Assessment and Plan: Stable. Blood pressure has been soft this evening. Resume metoprolol lisinopril when appropriate. (8) COPD (chronic obstructive pulmonary disease): Qualifiers: COPD type: unspecified COPD Qualified Code(
[2020-06-07] MEDS: guaiFENesin 200 MG/10 ML UDC PO (22:13)
[2020-06-08] VITALS (7 sets, daily range): BP systolic 96–124; BP diastolic 47–65; PULSE 85–113; RESP 14–16; TEMP 36.2–36.7; O2SAT 96–100
[2020-06-08] MEDS: LACTATED RINGERS 1,000 ML 100 ML IV CONT ×2 (04:06→15:48)
[2020-06-08] MEDS: CENTRAL LINE FLUSH 10 ML IV PUSH ×3 (05:35→20:56)
[2020-06-08 05:44] LABS: Hematocrit 26.9 % (37.0-47.0); Hemoglobin 8.2 g/dL (12.0-15.0); Mean Corpuscular HGB Conc 30.5 g/dl (32-36); Mean Corpuscular Hemoglobin 31.9 pg (26-34); Mean Corpuscular Volume 104.7 fl (80-100); Platelet Count Result 99 k/mm3 (150-375); Red Blood Count 2.57 M/mm3 (4.2-5.4); Red Cell Distribution Width 13.8 % (11.5-14.5)
[2020-06-08 05:45] LABS: Mean Platelet Volume 10.7 fl (7.4-10.4)
[2020-06-08 05:49] LABS: White Blood Count 1.9 K/mm3 (4.5-10.0)
[2020-06-08 06:04] LABS: Anion Gap -4 mmol/L (8-16); Blood Urea Nitrogen 8 mg/dL (7-17); Calcium 7.5 mg/dL (8.4-10.2); Carbon Dioxide 37 mmol/L (22-30); Chloride 104 mmol/L (98-107); Estimated CRCL calculation 52 ml/min; Estimated Glomerular Filt Rate > 60; Glucose 91 mg/dL (65-105); Potassium 3.8 mmol/L (3.4-5.0); Sodium 137 mmol/L (137-145)
--- NOTE | 2020-06-08 07:41 | PCPTNOTE ---
The PT treatment was unable to be completed 06/07/20 due to patient refusal. Will continue per Plan of care frequency and duration.
[2020-06-08] MEDS: ESCITALOPRAM OXALATE 10 MG TABLET 20 MG BY MOUTH (08:59)
[2020-06-08] MEDS: METOPROLOL SUCCINATE EXT REL 50 MG TABCR PO (08:59)
[2020-06-08] MEDS: MULTIVITAMINS THERAPEUTIC TAB (*BKC) 1 TABLET PO (08:59)
[2020-06-08] MEDS: CYANOCOBALAMIN 1,000 MCG TABLET 1000 MCG PO (08:59)
[2020-06-08] MEDS: FUROSEMIDE 20 MG TABLET PO (08:59)
[2020-06-08] MEDS: CHOLECALCIFEROL 1,000 UNITS TABLET 2000 UNITS PO (08:59)
[2020-06-08] MEDS: BENZONATATE 100 MG CAPSULE PO ×3 (09:00→17:21)
[2020-06-08] MEDS: FERROUS SULFATE 324 MG TABLET PO (09:00)
[2020-06-08] MEDS: PANTOPRAZOLE SOD SESQUIHYDRATE 20 MG TAB BY MOUTH (09:00)
[2020-06-08] MEDS: NYSTATIN 100,000 UNITS/ML SUSP 5 ML ORAL.SUSP PO ×4 (09:01→20:55)
[2020-06-08] MEDS: NICOTINE (*PBKC) 14 MG PATCH 1 PATCH TRANSDERM (09:01)
[2020-06-08] MEDS: guaiFENesin 200 MG/10 ML UDC PO ×2 (09:02→21:51)
[2020-06-08] MEDS: LOPERAMIDE HCL 2 MG CAPSULE PO ×3 (09:14→21:50)
--- NOTE | 2020-06-08 10:32 | PCOTNOTE ---
Attempted therapy session with patient, but patient refused stating she didn't feel up to it right now. Therapist explained benefits of therapy, and patient returned understanding, but continued to refuse all exercises, ADLs and transfers.
--- NOTE | 2020-06-08 11:33 | PCNFU ---
Nutrition Follow-Up Complete: Underweight related to nausea/vomiting/diarrhea as evidenced by patient reported weight loss of 2-13 pounds and BMI of 17.1 Goal: Patient to consume 75% or more of meals on current diet order. Patient is meeting goal about 30% of the time. Continue progressing toward goal. Pt current nutrition is a regular diet. Last recorded weight is 41 kg. Stable weight upon admission. Bowel Motility: + BM 06/06 Labs Reviewed: Hgb 8.2, Hct 26.9, Cr 0.5 Meds Noted: Vitamin B-12 tablet, Lexapro, Ferrous Sulfate, Lasix Tablet, Heparin Sodium, Lactated Ringers, Toprol Xl, Protonix, Vitamin D, Vancomycin Hcl, Nystatin, Loperamide Additional Notes: Checked in with patient today. Patient reported still having little to no appetite. She has been receiving ensure compact BID providing her with an additional 220 calories and 9 grams of protein but does not like them. She is willing to try the chocolate frozen nutritional treat BID providing her with an additional 300 calories and 9 grams of protein. Monitor patients labs, medications, weight, and oral intake every 5 days.
--- NOTE | 2020-06-08 11:44 | PCNSR ---
On 06/08/20, the student, Dimple Capellan, provided care and completed [facility] documentation on this patient. I have reviewed the student's documentation and agree with the findings.
[2020-06-08] MEDS: VANCOMYCIN ORAL 125 MG/2.5 ML SYRUP PO ×3 (12:37→23:26)
--- NOTE | 2020-06-08 13:53 | PCOTNOTE ---
Attempted therapy session with patient, but patient again refused, stating she had just done therapy and was tired. She added that her daughter was coming up in about an hour and she was going to get cleaned up and walk with her. Therapist explained the benefits of therapy and the importance of being active and engaged, but patient still refused.
--- NOTE | 2020-06-08 15:51 | PM.IMPN ---
Progress Note: A&P Assessment and Plan (1) Weakness generalized: Code(s): R53.1 - Weakness Status: Acute Assessment and Plan: The patient has been placed in observation status. Continue light IV hydration overnight. Patient's generalized weakness is likely secondary to deconditioning, chronic illnesses, and recent chemotherapy. PT OT evaluation in a.m.. 06/08/20 15:51 06/05 Patient is 75-year-old female with history of non-small cell lung cancer seen by oncologist, N/C department with a complaint generalized weakness nausea and diarrhea, patient has had several episodes of diarrhea see does take Imodium for some relief, patient had a CT scan of abdomen and not show any pathology to attribute persistent diarrhea, we have consulted GI for further recommendation, patient states did receive 1st round chemotherapy May 31, however her diarrhea had started prior to the chemotherapy, patient denies any abdominal pain fever or chills, patient states she had a 4 BM this morning, will start the patient on Imodium while in the hospital, will have PT OT evaluate the patient and patient will benefit going home with home health to help her with her ADLs. Patient's BMI is 17 will consult dietitian for nutritional recommendations. 06/06 Patient was started on Imodium yesterday stats its help control BM for little while then start soon after, states poor appetite and does not want to drink water, patient appear dehydrated and her blood pressure is soft, we are holding her BP meds, started patient on IVF, GI has differed to see the patient until outpatient, will consult manager sql, will have PT/OT work with patient. patient is dehydrated due to persistent diarrhea and poor appetite started on IVF and monitoring BP. Further recommendation to follow. 06/07 today patient still complains of persistent diarrhea, fatigue poor appetite and persistent cough to further evaluate patient had a chest x-ray which showed development of left upper lobe segmental consolidation, could be bacterial pneumonia and superimposed radiation fibrosis. I spoke with radiologist comparing recent chest x-ray and he believes patient does have a consolidation and pneumonia will start the patient on Rocephin azithromycin, continue to monitor and further recommendation to follow. 06/08 today patient is feeling much better her diarrhea has improved cough is also subsided and denies any abdominal pain nausea or vomiting fever or chills, will continue present management reassess tomorrow and further recommendation to follow (2) Oral pharyngeal candidiasis: Code(s): B37.0 - Candidal stomatitis Status: Acute Assessment and Plan: Likely secondary to chemotherapy. Continue nystatin oral swish and swallow. (3) Diarrhea: Qualifiers: Diarrhea type: unspecified type Qualified Code(s): R19.7 - Diarrhea, unspecified Code(s): R19.7 - Diarrhea, unspecified Status: Acute Assessment and Plan: Patient's acute diarrhea was likely exacerbated by chemotherapy. Continue IV hydration. Supportive care. I recommend discontinue Imodium. (4) Abnormal urinalysis: Code(s): R82.90 - Unspecified abnormal findings in urine Status: Acute Assessment and Plan: The patient denies any urinary symptoms. consider contaminant vs. asymptomatic bacteriuria. urine culture pending. (5) Chronic anemia: Code(s): D64.9 - Anemia, unspecified Status: Chronic Assessment and Plan: Chronic anemia is likely multifactorial. No signs of acute blood loss. Monitor H&H, transfuse p.r.n.. (6) NSCLC of left lung: Code(s): C34.92 - Malignant neoplasm of unspecified part of left bronchus or lung Status: Chronic Assessment and Plan: Hematology consult in a.yoon Manriquez. Continue hematology recommendations. (7) Essential hypertension: Code(s): I10 - Essential (primary) hypertension Status: Chronic
[2020-06-08] MEDS: ACETAMINOPHEN 325 MG TABLET 650 MG PO (17:22)
[2020-06-09] VITALS (12 sets, daily range): BP systolic 118–139; BP diastolic 49–77; PULSE 82–110; RESP 16–18; TEMP 36.2–37.1; O2SAT 95–100
[2020-06-09] MEDS: LACTATED RINGERS 1,000 ML 100 ML IV CONT ×2 (03:07→15:24)
[2020-06-09] MEDS: VANCOMYCIN ORAL 125 MG/2.5 ML SYRUP PO ×3 (05:19→20:17)
[2020-06-09] MEDS: CENTRAL LINE FLUSH 10 ML IV PUSH ×3 (05:20→20:18)
[2020-06-09] MEDS: ACETAMINOPHEN 325 MG TABLET 650 MG PO (05:28)
[2020-06-09 05:35] LABS: Hematocrit 28.9 % (37.0-47.0); Hemoglobin 8.8 g/dL (12.0-15.0); Immature Platelet Fraction Pct 6.2 % (0.9-11.2); Mean Corpuscular HGB Conc 30.4 g/dl (32-36); Mean Corpuscular Hemoglobin 31.8 pg (26-34); Mean Corpuscular Volume 104.3 fl (80-100); Mean Platelet Volume 11.3 fl (7.4-10.4); Platelet Count Result 93 k/mm3 (150-375); Red Blood Count 2.77 M/mm3 (4.2-5.4); Red Cell Distribution Width 13.6 % (11.5-14.5); White Blood Count 3.3 K/mm3 (4.5-10.0)
[2020-06-09 05:47] LABS: Potassium 3.9 mmol/L (3.4-5.0)
[2020-06-09 05:51] LABS: Blood Urea Nitrogen 9 mg/dL (7-17); Calcium 7.6 mg/dL (8.4-10.2); Carbon Dioxide > 40 mmol/L (22-30); Chloride 102 mmol/L (98-107); Estimated CRCL calculation 52 ml/min; Estimated Glomerular Filt Rate > 60; Glucose 97 mg/dL (65-105); Sodium 141 mmol/L (137-145)
[2020-06-09] MEDS: FERROUS SULFATE 324 MG TABLET PO (09:12)
[2020-06-09] MEDS: BENZONATATE 100 MG CAPSULE PO ×3 (09:13→20:16)
[2020-06-09] MEDS: CHOLECALCIFEROL 1,000 UNITS TABLET 2000 UNITS PO (09:13)
[2020-06-09] MEDS: PANTOPRAZOLE SOD SESQUIHYDRATE 20 MG TAB BY MOUTH (09:13)
[2020-06-09] MEDS: CYANOCOBALAMIN 1,000 MCG TABLET 1000 MCG PO (09:13)
[2020-06-09] MEDS: ESCITALOPRAM OXALATE 10 MG TABLET 20 MG BY MOUTH (09:13)
[2020-06-09] MEDS: NYSTATIN 100,000 UNITS/ML SUSP 5 ML ORAL.SUSP PO ×3 (09:14→20:17)
[2020-06-09] MEDS: FUROSEMIDE 20 MG TABLET PO (09:14)
[2020-06-09] MEDS: MULTIVITAMINS THERAPEUTIC TAB (*BKC) 1 TABLET PO (09:14)
[2020-06-09] MEDS: NICOTINE (*PBKC) 14 MG PATCH 1 PATCH TRANSDERM (09:15)
[2020-06-09] MEDS: METOPROLOL SUCCINATE EXT REL 50 MG TABCR PO (09:15)
--- NOTE | 2020-06-09 09:30 | PCPTNOTE ---
PT attempted treatment,however patient declined stating she did not feel well. PT will attempt treatment later today.
--- NOTE | 2020-06-09 11:23 | PCPTNOTE ---
Attempted PT treatment this AM. Pt reports she's not feeling well and refusing therapy. Will try again tomorrow. Clarisse Lee, MICHAELT.
--- NOTE | 2020-06-09 12:51 | PCOTNOTE ---
Attempted to see patient for OT this AM, patient refused initially and then MD walked in. Attempted again this PM to see patient, patient reported I'm getting an antibiotic and want to nap...maybe later. Will attempt patient again if time permits.
[2020-06-09] MEDS: ALBUTEROL SULFATE NEB 2.5 MG/0.5 ML INH INHALATION ×3 (14:04→19:51)
[2020-06-09] MEDS: IPRATROPIUM BR 0.02% INH SOLN 0.5 MG/2.5 ML VIAL INHALATION ×3 (14:05→19:52)
--- NOTE | 2020-06-09 14:21 | PM.IMPN ---
Progress Note: A&P Assessment and Plan (1) Weakness generalized: Code(s): R53.1 - Weakness Status: Acute Assessment and Plan: The patient has been placed in observation status. Continue light IV hydration overnight. Patient's generalized weakness is likely secondary to deconditioning, chronic illnesses, and recent chemotherapy. PT OT evaluation in a.m.. 06/09/20 14:21 06/05 Patient is 75-year-old female with history of non-small cell lung cancer seen by oncologist, N/C department with a complaint generalized weakness nausea and diarrhea, patient has had several episodes of diarrhea see does take Imodium for some relief, patient had a CT scan of abdomen and not show any pathology to attribute persistent diarrhea, we have consulted GI for further recommendation, patient states did receive 1st round chemotherapy May 31, however her diarrhea had started prior to the chemotherapy, patient denies any abdominal pain fever or chills, patient states she had a 4 BM this morning, will start the patient on Imodium while in the hospital, will have PT OT evaluate the patient and patient will benefit going home with home health to help her with her ADLs. Patient's BMI is 17 will consult dietitian for nutritional recommendations. 06/06 Patient was started on Imodium yesterday stats its help control BM for little while then start soon after, states poor appetite and does not want to drink water, patient appear dehydrated and her blood pressure is soft, we are holding her BP meds, started patient on IVF, GI has differed to see the patient until outpatient, will consult labeling strategist, will have PT/OT work with patient. patient is dehydrated due to persistent diarrhea and poor appetite started on IVF and monitoring BP. Further recommendation to follow. 06/07 today patient still complains of persistent diarrhea, fatigue poor appetite and persistent cough to further evaluate patient had a chest x-ray which showed development of left upper lobe segmental consolidation, could be bacterial pneumonia and superimposed radiation fibrosis. I spoke with radiologist comparing recent chest x-ray and he believes patient does have a consolidation and pneumonia will start the patient on Rocephin azithromycin, continue to monitor and further recommendation to follow. 06/08 today patient is feeling much better her diarrhea has improved cough is also subsided and denies any abdominal pain nausea or vomiting fever or chills, will continue present management reassess tomorrow and further recommendation to follow. 06/09 today patient states not feeling as well though her diarrhea has improved, however patient is positive for C diff started the patient on oral vancomycin, repeat chest x-ray showed today worsening pneumonia concern for aspiration will stop the Rocephin and add Zosyn to cover for anaerobics, patient has a long history smoking a patient still smokes, will start the patient on updraft, encouraged patient to participate in PT OT. (2) Oral pharyngeal candidiasis: Code(s): B37.0 - Candidal stomatitis Status: Acute Assessment and Plan: Likely secondary to chemotherapy. Continue nystatin oral swish and swallow. (3) Diarrhea: Qualifiers: Diarrhea type: unspecified type Qualified Code(s): R19.7 - Diarrhea, unspecified Code(s): R19.7 - Diarrhea, unspecified Status: Acute Assessment and Plan: Patient's acute diarrhea was likely exacerbated by chemotherapy. Continue IV hydration. Supportive care. I recommend discontinue Imodium. (4) Abnormal urinalysis: Code(s): R82.90 - Unspecified abnormal findings in urine Status: Acute Assessment and Plan: The patient denies any urinary symptoms. consider contaminant vs. asymptomatic bacteriuria. urine culture pending. (5) Chronic anemia: Code(s): D64.9 - Anemia, unspecified Status: Chronic Assessment and Plan: Chronic anemia is lik
[2020-06-09] MEDS: ONDANSETRON INJ 4 MG/2 ML VIAL IV PUSH (16:12)
[2020-06-09] MEDS: BUDESONIDE RESPULE NEB 0.5 MG/2 ML AMP INHALATION (19:52)
[2020-06-10] VITALS (37 sets, daily range): BP systolic 97–161; BP diastolic 49–95; PULSE 50–176; RESP 0–23; TEMP 35.8–36.6; O2SAT 77–100
[2020-06-10 00:36] LABS: Glucose Point of Care 112 (65-105)
[2020-06-10] MEDS: NYSTATIN 100,000 UNITS/ML SUSP 5 ML ORAL.SUSP PO ×4 (01:04→20:34)
[2020-06-10] MEDS: VANCOMYCIN ORAL 125 MG/2.5 ML SYRUP PO ×3 (01:04→17:26)
[2020-06-10] MEDS: IPRATROPIUM BR 0.02% INH SOLN 0.5 MG/2.5 ML VIAL INHALATION ×7 (01:15→23:39)
[2020-06-10] MEDS: ALBUTEROL SULFATE NEB 2.5 MG/0.5 ML INH INHALATION ×7 (01:15→23:39)
[2020-06-10] MEDS: traZODone HCL 50 MG TABLET PO (01:20)
[2020-06-10] MEDS: LACTATED RINGERS 1,000 ML 100 ML IV CONT ×2 (02:09→10:01)
--- NOTE | 2020-06-10 04:56 | ECG_ITS ---
Measurements Intervals [place] Rate: 115 P: 94 NV: 174 QRS: 96 QRSD: 72 T: 102 QT: 282 QTc: 391 Interpretive Statements SINUS TACHYCARDIA ATRIAL COUPLET AND FREQUENT ATRIAL PREMATURE COMPLEXES RIGHT AXIS DEVIATION ANTEROSEPTAL INFARCT, AGE INDETERMINATE BORDERLINE T WAVE ABNORMALITY- HIGH LATERAL LEADS BASELINE ARTIFACT- I, AVL, V5 ABNORMAL ECG Electronically Signed On 06-10-2020 7:42:03 CDT by Ac Lynn D.O.
[2020-06-10 04:58] LABS: Hematocrit 28.5 % (37.0-47.0); Hemoglobin 8.5 g/dL (12.0-15.0); Immature Platelet Fraction Pct 6.5 % (0.9-11.2); Mean Corpuscular HGB Conc 29.8 g/dl (32-36); Mean Corpuscular Hemoglobin 32.2 pg (26-34); Mean Platelet Volume 11.6 fl (7.4-10.4); Platelet Count Result 74 k/mm3 (150-375); Red Blood Count 2.64 M/mm3 (4.2-5.4); Red Cell Distribution Width 13.6 % (11.5-14.5); White Blood Count 4.8 K/mm3 (4.5-10.0)
[2020-06-10 05:06] LABS: Anion Gap 1 mmol/L (8-16); Blood Urea Nitrogen 9 mg/dL (7-17); Calcium 7.6 mg/dL (8.4-10.2); Carbon Dioxide 39 mmol/L (22-30); Chloride 100 mmol/L (98-107); Estimated CRCL calculation 38 ml/min; Estimated Glomerular Filt Rate > 60; Glucose 108 mg/dL (65-105); Sodium 140 mmol/L (137-145)
--- NOTE | 2020-06-10 05:28 | ECG_ITS ---
Measurements Intervals [place] Rate: 173 P: DC: 0 QRS: 85 QRSD: 100 T: 95 QT: 238 QTc: 405 Interpretive Statements ATRIAL FIBRILLATION WITH RAPID VENTRICULAR RESPONSE LOW QRS VOLTAGE IN LIMB LEADS CANNOT RULE OUT SEPTAL INFARCT, AGE INDETERMINATE BORDERLINE ST-T WAVE ABNORMALITY- ANTEROLATERAL LEADS BASELINE ARTIFACT- I, II, III, V3, V5-V6 ABNORMAL ECG Electronically Signed On 06-10-2020 16:47:39 CDT by Ac Lynn D.O.
--- NOTE | 2020-06-10 06:49 | PM.CCN ---
Critical Care Event Note Summary Code activated: No Narrative: I was called by nursing staff around 4:45 a.m.. The patient had been complaining of generally not feeling well. The patient was not on telemetry at that time. Nursing staff proceeded to draw the patient's blood and the patient requested to go the bathroom as she felt like she needed to have a bowel movement. After she returned to the bed they obtained her vital signs and the patient was tachycardic with heart rate between 160 and 180. The patient's blood pressure was 145 systolic. Stat EKG was ordered. When the stat EKG was obtained initially showed a rate of 115. Repeat EKG demonstrated a heart rate of 170. EKG appeared to be consistent with an atrial tachycardia. The patient's heart rate was jumping between 180 in 220s. The patient's blood pressure was dropping into the 90 systolic. Patient was pale and acutely ill-appearing. The patient again reported that she just did not feel well. She denied any chest pain or palpitations. The patient had evidently recently been admitted to [facility] for similar symptoms and had underwent electrical cardioversion. The patient was attached to the crash cart monitor and the patient received a dose of adenosine as it appeared that she was likely in SVT. With slowing of the patient's heart rate it. That she briefly converted into sinus rhythm but foot back in 2 SVT. She would then received a 2nd dose of adenosine at a higher dose and had the same results. On 3rd dose of adenosine the patient then appear to be more in it AFib RVR. Her heart wrist still drip jumping between 180 and 200. Subsequently patient was given sedation with fentanyl and Versed and underwent synchronized cardioversion. The patient briefly converted to sinus bradycardia with a heart rate between 45 and 50 for several minutes. She then returned back to AFib RVR but her rate was better controlled between 130 and 140. Her blood pressure had improved to the 140 systolic. Due to sedation the patient did have some hypoxia and required a dose of Narcan and ventilatory support with bag-valve mask for 2 or 3 minutes. The patient's labs were reviewed in her magnesium had returned low at 1. She received 1 g of magnesium sulfate during post cardioversion resuscitation. She was initiated on amiodarone infusion she has subsequently transferred to the ICU. The patient's case was discussed with the tire retreader and repairer controller tester who agreed with current management plan. Approximately 20 is 30 minutes after transfer to the ICU the patient converted to sinus rhythm. GENERAL: Acute on chronic ill-appearing, cachectic HEENT: Mucous membranes are tacky, pupils are equal and reactive, head is normocephalic atraumatic CARDIOVASCULAR: Markedly tachycardic, irregular times, weak pulses initially with improvement in pulses after stable a gonzales of cardiac rhythm, no JVD RESPIRATORY: Decreased breath sounds bilaterally, mild tachypnea ABDOMEN: Nondistended, soft, old surgical scar a left abdomen INTEGUMENT: Generalized pallor, perioral cyanosis NEUROLOGIC: Alert and oriented, speech is clear, moves all extremities equally PSYCHIATRIC: Animated affect, cooperative EXTREMITIES: Transient cyanosis, no edema Assessment and plan: Tachyarrhythmia--initially thought to be SVT or could have been atrial fibrillation with a rapid rate making identification difficult. Management as discussed above. The patient is now on an amiodarone infusion. The patient's heart has returned to sinus rhythm. Patient care has been turned over to the tire retreader and repairer controller tester at the change of my shift. Hypo magnesemia--will given additional 2 g magnesium sulfate rider. 80 minutes spent in critical care activities. This case had a high probability of a clinically significant, sudden, or life threatening deterioration of this patient's condition which required my full and direct attention, intervention and perso
--- NOTE | 2020-06-10 06:56 | PC.NURSE ---
This patient, Demetria Salgado, was received from [[phone] ] on 06/10/20 at 0630. Patient/family oriented to unit policies and routines
[2020-06-10] MEDS: AMIODARONE 150 MG/D5W 100 ML 150 MG/100 ML BAG 600 MG IV CONT ×2 (07:04→20:55)
[2020-06-10 07:09] LABS: Glucose Point of Care 116 (65-105)
[2020-06-10] MEDS: AMIODARONE 360 MG/D5W 200 ML 360 MG/200 ML BAG 33.33 MG IV CONT ×2 (07:18→21:11)
[2020-06-10] MEDS: MAGNESIUM SULF 2 GM/WATER 50ML 2 GM/50 ML BAG IVPB (07:34)
--- NOTE | 2020-06-10 07:35 | ECG_ITS ---
Measurements Intervals [place] Rate: 81 P: 78 MN: 145 QRS: 76 QRSD: 84 T: 79 QT: 386 QTc: 449 Interpretive Statements SINUS RHYTHM CANNOT RULE OUT SEPTAL INFARCT, AGE INDETERMINATE BORDERLINE T WAVE ABNORMALITY- HIGH LATERAL LEADS BASELINE ARTIFACT- I, III, AVR, AVL, AVF, V1, V4-V6 ABNORMAL ECG Electronically Signed On 06-10-2020 16:48:24 CDT by Ac Lynn D.O.
[2020-06-10] MEDS: BUDESONIDE RESPULE NEB 0.5 MG/2 ML AMP INHALATION ×2 (08:01→19:53)
--- NOTE | 2020-06-10 08:29 | WPDCNINT ---
Assessment and Plan Assessment and plan (1) Tachyarrhythmia: Code(s): R00.0 - Tachycardia, unspecified Status: Acute Assessment and Plan: Patient with tachyarrhythmia likely SVT, received adenosine 6 mg, followed by 12 mg x2. Patient was also cardioverted x1 converting to sinus bradycardia, atrial fibrillation in sinus rhythm. -patient received amiodarone bolus and currently on amiodarone infusion -appreciate cardiology evaluation recommendation -will hold metoprolol due to borderline blood pressures -will also hold Lasix (2) Pneumonia: Code(s): J18.9 - Pneumonia, unspecified organism Status: Acute Assessment and Plan: Pneumonia could be related to aspiration, postobstructive -continue Zosyn and vancomycin -continue antitussive meds (3) NSCLC of left lung: Code(s): C34.92 - Malignant neoplasm of unspecified part of left bronchus or lung Status: Chronic Assessment and Plan: Dr. Manriquez has been consulted (4) COPD (chronic obstructive pulmonary disease): Qualifiers: COPD type: unspecified COPD Qualified Code(s): J44.9 - Chronic obstructive pulmonary disease, unspecified Code(s): J44.9 - Chronic obstructive pulmonary disease, unspecified Status: Chronic Assessment and Plan: Continue bronchodilators and antibiotics (5) Oral pharyngeal candidiasis: Code(s): B37.0 - Candidal stomatitis Status: Acute Assessment and Plan: Continue nystatin swish and swallow (6) Clostridioides difficile diarrhea: Code(s): A04.72 - Enterocolitis due to Clostridium difficile, not specified as recurrent Status: Acute Assessment and Plan: Patient presented with diarrhea, currently C diff positive on p.o. vancomycin (7) Chronic anemia: Code(s): D64.9 - Anemia, unspecified Status: Acute Assessment and Plan: History of chronic anemia -hemoglobin has been stable, transfuse if hemoglobin < 7.0 (8) Acquired thrombocytopenia: Code(s): D69.6 - Thrombocytopenia, unspecified Status: Acute Assessment and Plan: Thrombocytopenia could be multifactorial, infection, sepsis -patient ooff Lovenox -will send hit antibodies serotonin release assay Continue to monitor platelet count (9) Tobacco dependence: Code(s): F17.200 - Nicotine dependence, unspecified, uncomplicated Status: Chronic Assessment and Plan: Patient continues to smoke, states she is planning to quit smoking -continue nicotine patch Additional Plan Discussed with patient updated with her condition and plan of care. Code status: DNR Critical care time spent: 42 minutes This dictation may have been done utilizing a voice recognition system. Attempts have been made to correct errors. However, there may be uncorrected grammatical, spelling, and recognition errors present. Due to a high probability of clinically significant, life threatening deterioration, the patient required my highest level of preparedness to intervene emergently and I personally spent this critical care time directly and personally managing the patient. This critical care time included obtaining a history; examining the patient; pulse oximetry; ordering and review of studies; arranging urgent treatment with development of a management plan; evaluation of patient's response to treatment; frequent reassessment; and discussions with other providers. It was exclusive of separately billable procedures and treating other patients and teaching time. Please see Assessment and Plan section and the rest of the note for further information on patient assessment and treatment Licensed Surveyor Consult Note Consult date: 06/10/20 Time Seen: 07:04 Reason for consult: Acute arrhythmia, likely SVT status post adenosine cardioversion HPI: Demetria Salgado is a 75 year old female past medical history NSCLC of the left lung, peripheral artery disease, acidotic aneurysm, coronary a
--- NOTE | 2020-06-10 08:29 | PCPTNOTE ---
Pt on treatment list...this morning patient transferred to ICU...spoke with nursing...patient will be on HOLD today for therapy.. will check on this patient's medical situation tomorrow.
--- NOTE | 2020-06-10 08:30 | PCOTNOTE ---
Spoke to nursing; reported pt having significant cardiac issues this AM- hold therapy today per nursing.
--- NOTE | 2020-06-10 09:01 | PM.CNCAR ---
Assessment and Plan Assessment and plan (1) Atrial fibrillation with RVR: Code(s): I48.91 - Unspecified atrial fibrillation Status: Acute Assessment and Plan: H/O PAF treated w/ metoprolol + ASA in the past, with recurrence this morning resulting in hypotension, finally converted to NSR after amiodarone drip. She lacks sufficient IV access to continue the drip so we will switch her to p.o. amiodarone. Soft BP; metoprolol held. Currently does not appear to be a good candidate for anticoagulation due to her diarrhea, thrombocytopenia, etc., and she is now a DNR which may impact the aggressiveness of therapy. (2) Acute diastolic CHF (congestive heart failure): Code(s): I50.31 - Acute diastolic (congestive) heart failure Status: Acute Assessment and Plan: MIld CHF noted on yesterday's CXR but oxygenating well on 3 L. Lasix on hold due to low BP. (3) Clostridioides difficile diarrhea: Code(s): A04.72 - Enterocolitis due to Clostridium difficile, not specified as recurrent Status: Acute Assessment and Plan: On po vancomycin (4) Pneumonia: Code(s): J18.9 - Pneumonia, unspecified organism Status: Acute Assessment and Plan: On antibiotics. (5) Lung cancer: Code(s): C34.90 - Malignant neoplasm of unspecified part of unspecified bronchus or lung Status: Acute Assessment and Plan: Metastatic lung cancer treated by DR. Manriquez w/ Manan Simmons and starting chemotherapy. (6) Vascular disease: Code(s): I99.9 - Unspecified disorder of circulatory system Status: Acute Assessment and Plan: H/O vascular disease of the aorta, possibly a coronary stent (no documentation that I could find) . No ischemic changes on EKD this morning despite RVR. History of Present Illness History of Present Illness Consult date/time: 06/10/20 09:01 Requesting physician: Deana Jurado DO Consult reason: atrial fibrillation Reason For Visit: NSCLC, weakness Narrative: Demetria Salgado is a 75 y.o. female admitted with C diff colitis whom I was asked to see at the request of Dr. ramriez for my advice and opinion regarding her AFib RVR in consultation. Ms. earl Menard has a history of non-small cell lung cancer and had her 1st dose of chemotherapy last week. She was having diarrhea starting prior to the chemotherapy and was admitted with C diff. Early this morning she complained that she didn't feel well and was found to be in a supraventricular tachyarrhthmia rate 190s (appears to be a fib RVR in retrospect) associated with hypotension. She failed Adenocard, and underwent emergent cardioversion successful for only a few minutes. IV amiodarone improved her heart rate and successfully converted her to sinus rhythm. She was transferred to the ICU. Patient is very tired right now, asking to be left alone, refusing peripheral IV placement. No complaints of chest pain or shortness of breath at the moment, at rest. Patient apparently had a 1st episode of AFib RVR when admitted to [facility] in [place] after a fall in April 2020 treated with metoprolol by Dr.Pavan Evans. Non-small cell lung cancer in August 2018,T1 N2 M1 metastatic to both lungs treated by Dr. Manriquez initially with a couple courses of radiation therapy and most recently starting chemotherapy. She also has a history of diffuse vascular disease, with a thoracic aneurysm treated with endovascular repair and a suprarenal abdominal aortic aneurysm treated in 2010. [employer] suggests she has had a coronary stent though there is no documentation of this and I can't find any definite hx of CAD. She has hypertension and orthostatic hypotension, and has seen Dr. kelsea Mancera in the office, last visit March 2018. Subsequentl
[2020-06-10] MEDS: PANTOPRAZOLE SOD SESQUIHYDRATE 20 MG TAB BY MOUTH (10:02)
[2020-06-10] MEDS: FERROUS SULFATE 324 MG TABLET PO (10:02)
[2020-06-10] MEDS: AMIODARONE HCL 200 MG TABLET 400 MG PO ×2 (10:02→20:29)
[2020-06-10] MEDS: CHOLECALCIFEROL 1,000 UNITS TABLET 2000 UNITS PO (10:03)
[2020-06-10] MEDS: MULTIVITAMINS THERAPEUTIC TAB (*BKC) 1 TABLET PO (10:03)
[2020-06-10] MEDS: CYANOCOBALAMIN 1,000 MCG TABLET 1000 MCG PO (10:03)
[2020-06-10] MEDS: ESCITALOPRAM OXALATE 10 MG TABLET 20 MG BY MOUTH (10:03)
[2020-06-10] MEDS: NICOTINE (*PBKC) 14 MG PATCH 1 PATCH TRANSDERM (10:05)
[2020-06-10] MEDS: BENZONATATE 100 MG CAPSULE PO ×3 (10:05→17:26)
--- NOTE | 2020-06-10 15:11 | PM.IMPN ---
Progress Note: A&P Assessment and Plan (1) Weakness generalized: Code(s): R53.1 - Weakness Status: Acute Assessment and Plan: The patient has been placed in observation status. Continue light IV hydration overnight. Patient's generalized weakness is likely secondary to deconditioning, chronic illnesses, and recent chemotherapy. PT OT evaluation in a.m.. 06/10/20 15:11 06/05 Patient is 75-year-old female with history of non-small cell lung cancer seen by oncologist, N/C department with a complaint generalized weakness nausea and diarrhea, patient has had several episodes of diarrhea see does take Imodium for some relief, patient had a CT scan of abdomen and not show any pathology to attribute persistent diarrhea, we have consulted GI for further recommendation, patient states did receive 1st round chemotherapy May 31, however her diarrhea had started prior to the chemotherapy, patient denies any abdominal pain fever or chills, patient states she had a 4 BM this morning, will start the patient on Imodium while in the hospital, will have PT OT evaluate the patient and patient will benefit going home with home health to help her with her ADLs. Patient's BMI is 17 will consult dietitian for nutritional recommendations. 06/06 Patient was started on Imodium yesterday stats its help control BM for little while then start soon after, states poor appetite and does not want to drink water, patient appear dehydrated and her blood pressure is soft, we are holding her BP meds, started patient on IVF, GI has differed to see the patient until outpatient, will consult justice of the peace, will have PT/OT work with patient. patient is dehydrated due to persistent diarrhea and poor appetite started on IVF and monitoring BP. Further recommendation to follow. 06/07 today patient still complains of persistent diarrhea, fatigue poor appetite and persistent cough to further evaluate patient had a chest x-ray which showed development of left upper lobe segmental consolidation, could be bacterial pneumonia and superimposed radiation fibrosis. I spoke with radiologist comparing recent chest x-ray and he believes patient does have a consolidation and pneumonia will start the patient on Rocephin azithromycin, continue to monitor and further recommendation to follow. 06/08 today patient is feeling much better her diarrhea has improved cough is also subsided and denies any abdominal pain nausea or vomiting fever or chills, will continue present management reassess tomorrow and further recommendation to follow. 06/09 today patient states not feeling as well though her diarrhea has improved, however patient is positive for C diff started the patient on oral vancomycin, repeat chest x-ray showed today worsening pneumonia concern for aspiration will stop the Rocephin and add Zosyn to cover for anaerobics, patient has a long history smoking a patient still smokes, will start the patient on updraft, encouraged patient to participate in PT OT. 06/10 patient with C diff diarrhea and aspiration pneumonia patient was doing clinically better yesterday, patient with a proximal atrial fibrillation, however last night patient went into atrial fibrillation with RVR was given amiodoran and was hypotensive and was cardioverted by Dr. Jurado however patient converted and went back into A.fib, seen by timber rider and switch her back to PO amiodorane, patient is not a candidate for aggressive treatment, and now patient is DNR, today patient quite somnolent unable to provide review of symptom, patient was transferred to ICU for close observation and seen by school office assistant and appreciate, will continue present management. (2) Oral pharyngeal candidiasis: Code(s): B37.0 - Candidal stomatitis Status: Acute Assessment and Plan: Likely secondary to chemotherapy. Continue nystatin oral swish and swallow. (3) Diarrhea: Qualifiers: Diarrhea type: unspecified type Qualif
[2020-06-10] MEDS: CENTRAL LINE FLUSH 10 ML IV PUSH (20:34)
[2020-06-11] VITALS (14 sets, daily range): BP systolic 92–127; BP diastolic 51–93; PULSE 70–140; RESP 12–23; TEMP 36–36.6; O2SAT 90–98
[2020-06-11] MEDS: LACTATED RINGERS 1,000 ML 100 ML IV CONT (05:30)
[2020-06-11] MEDS: VANCOMYCIN ORAL 125 MG/2.5 ML SYRUP PO (05:32)
[2020-06-11] MEDS: CENTRAL LINE FLUSH 10 ML IV PUSH (05:45)
[2020-06-11 06:19] LABS: Basophils Percent Auto 0.3 % (0.2-1.2); Eosinophils Percent Auto 0.8 % (0-4.4); Hematocrit 30.3 % (37.0-47.0); Hemoglobin 8.8 g/dL (12.0-15.0); Immature Granulocyte Absolute 0.02 K/mm3 (0.00-0.031); Immature Granulocyte Percent A 0.5 % (0-0.5); Lymphocytes Absolute Auto 0.27 K/mm3 (0.9-3.2); Lymphocytes Percent Auto 7.3 % (18.3-44.2); Mean Corpuscular Hemoglobin 31.7 pg (26-34); Mean Platelet Volume 13.1 fl (7.4-10.4); Monocytes Absolute Auto 0.4 K/mm3 (0.1-0.6); Neutrophils Percent Auto 81.1 % (45.5-73.1); Nucleated Red Blood Cells Perc 0.8 % (0.0-0.2); Platelet Count Result 53 k/mm3 (150-375); Red Blood Count 2.78 M/mm3 (4.2-5.4); Red Cell Distribution Width 13.7 % (11.5-14.5); White Blood Count 3.7 K/mm3 (4.5-10.0)
[2020-06-11] MEDS: AMIODARONE 360 MG/D5W 200 ML 360 MG/200 ML BAG 16.67 MG IV CONT (06:50)
[2020-06-11 07:04] LABS: Alanine Aminotransferase 18 U/L (4-35); Albumin Level 2.6 g/dL (3.5-5.1); Alkaline Phosphatase 74 U/L (38-126); Anion Gap 1 mmol/L (8-16); Aspartate Amino Transferase 18 U/L (14-36); Bilirubin,Total 0.2 mg/dL (0.2-1.3); Blood Urea Nitrogen 14 mg/dL (7-17); CRP 19.6 mg/dL (<1.0); Calcium 7.8 mg/dL (8.4-10.2); Carbon Dioxide 39 mmol/L (22-30); Chloride 95 mmol/L (98-107); Estimated CRCL calculation 34 ml/min; Estimated Glomerular Filt Rate > 60; Glucose 159 mg/dL (65-105); Magnesium 1.8 mg/dL (1.6-2.3); Phosphorus 4.2 mg/dL (2.5-4.5); Potassium 3.8 mmol/L (3.4-5.0); Sodium 135 mmol/L (137-145)
[2020-06-11 07:08] LABS: Platelet Estimate Decreased (Adequate)
[2020-06-11 07:09] LABS: Anisocytosis 2+ (NORMAL); Hypochromasia 1+ (NORMAL); Ovalocytes 1+ (NORMAL); Poikilocytosis 1+ (NORMAL); Tear Drop Cells 1+ (NORMAL)
[2020-06-11] MEDS: IPRATROPIUM BR 0.02% INH SOLN 0.5 MG/2.5 ML VIAL INHALATION ×2 (07:28→11:13)
[2020-06-11] MEDS: ALBUTEROL SULFATE NEB 2.5 MG/0.5 ML INH INHALATION ×2 (07:28→11:13)
[2020-06-11] MEDS: BUDESONIDE RESPULE NEB 0.5 MG/2 ML AMP INHALATION (07:28)
[2020-06-11] MEDS: ACETYLCYSTEINE 20% INHAL SOLN 800 MG/4 ML VIAL 200 MG INHALATION (08:07)
[2020-06-11] MEDS: DORNASE ALFA INH SOLN 1 MG/ML 2.5 ML AMP 2.5 MG INHALATION (08:07)
--- NOTE | 2020-06-11 08:28 | WPDINTPN ---
Progress Note: A&P Assessment and Plan (1) Tachyarrhythmia: Code(s): R00.0 - Tachycardia, unspecified Status: Acute Assessment and Plan: Patient with tachyarrhythmia likely SVT, received adenosine 6 mg, followed by 12 mg x2. Patient was also cardioverted x1 converting to sinus bradycardia, atrial fibrillation in sinus rhythm. -patient received amiodarone bolus and currently on amiodarone infusion -appreciate cardiology evaluation recommendation -will hold metoprolol due to borderline blood pressures -will also hold Lasix (2) Pneumonia: Code(s): J18.9 - Pneumonia, unspecified organism Status: Acute Assessment and Plan: Pneumonia could be related to aspiration, postobstructive -left lung whiteout, with atelectasis of the left lung which could be related to postobstructive pneumonia, mucus plugging -have ordered Pulmozyme with Mucomyst nebulizer -chest PT with vest therapy -will put patient on left side down for better oxygenation -continue Zosyn and vancomycin -continue antitussive meds (3) NSCLC of left lung: Code(s): C34.92 - Malignant neoplasm of unspecified part of left bronchus or lung Status: Chronic Assessment and Plan: Dr. Manriquez has been consulted -metastatic lung cancer with radiation treatment -patient received her 1st dose of chemotherapy on 06/06/2020 (4) COPD (chronic obstructive pulmonary disease): Qualifiers: COPD type: unspecified COPD Qualified Code(s): J44.9 - Chronic obstructive pulmonary disease, unspecified Code(s): J44.9 - Chronic obstructive pulmonary disease, unspecified Status: Chronic Assessment and Plan: Continue bronchodilators and antibiotics (5) Oral pharyngeal candidiasis: Code(s): B37.0 - Candidal stomatitis Status: Acute Assessment and Plan: Continue nystatin swish and swallow (6) Clostridioides difficile diarrhea: Code(s): A04.72 - Enterocolitis due to Clostridium difficile, not specified as recurrent Status: Acute Assessment and Plan: Patient presented with diarrhea, currently C diff positive on p.o. vancomycin (7) Chronic anemia: Code(s): D64.9 - Anemia, unspecified Status: Acute Assessment and Plan: History of chronic anemia -hemoglobin has been stable, transfuse if hemoglobin < 7.0 (8) Acquired thrombocytopenia: Code(s): D69.6 - Thrombocytopenia, unspecified Status: Acute Assessment and Plan: Thrombocytopenia could be multifactorial, infection, sepsis -patient ooff Lovenox -will send hit antibodies serotonin release assay - Continue to monitor platelet count -will discuss with hematology/oncology regarding pancytopenia (9) Tobacco dependence: Code(s): F17.200 - Nicotine dependence, unspecified, uncomplicated Status: Chronic Assessment and Plan: Patient continues to smoke, states she is planning to quit smoking -continue nicotine patch Additional Plan Discuss with patient and daughter, Reba and updated them with patient's condition and plan of care. Son is going to be arriving at 10:00 a.m. and will have family meeting. Code status: DNR Critical care time spent: 33 minutes This dictation may have been done utilizing a voice recognition system. Attempts have been made to correct errors. However, there may be uncorrected grammatical, spelling, and recognition errors present. Due to a high probability of clinically significant, life threatening deterioration, the patient required my highest level of preparedness to intervene emergently and I personally spent this critical care time directly and personally managing the patient. This critical care time included obtaining a history; examining the patient; pulse oximetry; ordering and review of studies; arranging urgent treatment with development of a management plan; evaluation of patient's response to treatment; frequent reassessment; and discussions
--- NOTE | 2020-06-11 08:34 | PCOTNOTE ---
Attempted OT treatment, per RN and MD hold occupational therapy and therapy will be canceled due to patients current medical status at this time. Can re-order OT if medical status is appropriate.
[2020-06-11] MEDS: NICOTINE (*PBKC) 14 MG PATCH 1 PATCH TRANSDERM (08:42)
[2020-06-11] MEDS: PANTOPRAZOLE SODIUM IV 40 MG VIAL IV PUSH (09:05)
--- NOTE | 2020-06-11 09:17 | PCRCNOTE ---
Changed O2 device to 7L HFNC. SpO2 85-90. Changed to 50% NRBM @ 15L. SpO2 82-88. Changed pulse oximetry device and placed pt back on 15L NRBM SpO2 88-93%. Dr. Encarnacion and RN notified.
--- NOTE | 2020-06-11 11:07 | PCDIET ---
ICU Rounding Note: Nursing keeping patient NPO at this time. Patient on 15L non-rebreather and reportedly has weak swallow. Family meeting today to discuss plan of care. Noted intakes have been 50% of meals or less since last review. Last recorded weight is 46kg which is increased from last review. +I/O. Decreased urine output reported. Bowel Motility: Last documented BM on 06/10/20 x 1. Labs Reviewed: Hgb (8.8), Hct (30.3), Glu (159), Na (135), Alb (2.6), Marie Ca (8.92) Meds Noted: Albuterol, Vitamin B12, Ferrous Sulfate, Lasix, Pulmicort, Vibramycin, Zosyn, Toprol, MVI, Protonix, Desyrel, Vancomycin, Vitamin D Additional Notes: No documented skin breakdown. Following daily in ICU rounds. Assessing/reassessing every 5 days.
--- NOTE | 2020-06-11 12:40 | PM.DS ---
DS: Admitting Diagnosis Admitting Diagnosis Admitting Diagnosis: Chief Complaint: Generalized weakness after chemotherapy this week. DS: Discharge Diagnosis Discharge Diagnosis (1) Weakness generalized: Code(s): R53.1 - Weakness Status: Acute Assessment and Plan: The patient has been placed in observation status. Continue light IV hydration overnight. Patient's generalized weakness is likely secondary to deconditioning, chronic illnesses, and recent chemotherapy. PT OT evaluation in a.m.. 06/10/20 15:11 06/05 Patient is 75-year-old female with history of non-small cell lung cancer seen by oncologist, N/C department with a complaint generalized weakness nausea and diarrhea, patient has had several episodes of diarrhea see does take Imodium for some relief, patient had a CT scan of abdomen and not show any pathology to attribute persistent diarrhea, we have consulted GI for further recommendation, patient states did receive 1st round chemotherapy May 31, however her diarrhea had started prior to the chemotherapy, patient denies any abdominal pain fever or chills, patient states she had a 4 BM this morning, will start the patient on Imodium while in the hospital, will have PT OT evaluate the patient and patient will benefit going home with home health to help her with her ADLs. Patient's BMI is 17 will consult dietitian for nutritional recommendations. 06/06 Patient was started on Imodium yesterday stats its help control BM for little while then start soon after, states poor appetite and does not want to drink water, patient appear dehydrated and her blood pressure is soft, we are holding her BP meds, started patient on IVF, GI has differed to see the patient until outpatient, will consult performance improvement director, will have PT/OT work with patient. patient is dehydrated due to persistent diarrhea and poor appetite started on IVF and monitoring BP. Further recommendation to follow. 06/07 today patient still complains of persistent diarrhea, fatigue poor appetite and persistent cough to further evaluate patient had a chest x-ray which showed development of left upper lobe segmental consolidation, could be bacterial pneumonia and superimposed radiation fibrosis. I spoke with radiologist comparing recent chest x-ray and he believes patient does have a consolidation and pneumonia will start the patient on Rocephin azithromycin, continue to monitor and further recommendation to follow. 06/08 today patient is feeling much better her diarrhea has improved cough is also subsided and denies any abdominal pain nausea or vomiting fever or chills, will continue present management reassess tomorrow and further recommendation to follow. 06/09 today patient states not feeling as well though her diarrhea has improved, however patient is positive for C diff started the patient on oral vancomycin, repeat chest x-ray showed today worsening pneumonia concern for aspiration will stop the Rocephin and add Zosyn to cover for anaerobics, patient has a long history smoking a patient still smokes, will start the patient on updraft, encouraged patient to participate in PT OT. 06/10 patient with C diff diarrhea and aspiration pneumonia patient was doing clinically better yesterday, patient with a proximal atrial fibrillation, however last night patient went into atrial fibrillation with RVR was given amiodoran and was hypotensive and was cardioverted by Dr. Jurado however patient converted and went back into A.fib, seen by wall worker and switch her back to PO amiodorane, patient is not a candidate for aggressive treatment, and now patient is DNR, today patient quite somnolent unable to provide review of symptom, patient was transferred to ICU for close observation and seen by records technician and appreciate, will continue present management. (2) Oral pharyngeal candidiasis: Code(s): B37.0 - Candidal stomatitis Status: Acute Assessment and Plan: Likely secondary
[2020-06-12 12:53] LABS: Heparin Induced Platelet Antib Negative (Negative)
[2020-06-12 14:31] LABS: UFH SRA Result Interpretation Negative (Negative)
== END 2020-06-11 13:50 | disposition hospice, inpatient (51) | DRG 194 ==
LOC: ANHED 19:37 → ANH3MED 20:09 → ANHICU 06-11 12:40 → ANH3MED 06-13 15:15 → ANHICU 06-13 15:15
PROVIDERS: Internal Medicine; Admitting Provider Family Medicine; Emergency Provider Emergency Medicine; PCP Family Medicine; Visit Provider Family Medicine
DX: J18.9 Pneumonia, unspecified organism (principal); J44.0 Chronic obstructive pulmonary disease with (acute) lower respiratory infection; B37.0 Candidal stomatitis; C34.92 Malignant neoplasm of unspecified part of left bronchus or lung; A04.72 Enterocolitis due to Clostridium difficile, not specified as recurrent; R64 Cachexia; Z68.1 Body mass index [BMI] 19.9 or less, adult; I47.1 Supraventricular tachycardia; E46 Unspecified protein-calorie malnutrition; R53.1 Weakness; T45.1X5A Adverse effect of antineoplastic and immunosuppressive drugs, initial encounter; J69.0 Pneumonitis due to inhalation of food and vomit; I25.10 Atherosclerotic heart disease of native coronary artery without angina pectoris; I73.9 Peripheral vascular disease, unspecified; I48.0 Paroxysmal atrial fibrillation; I10 Essential (primary) hypertension; D64.9 Anemia, unspecified; F17.210 Nicotine dependence, cigarettes, uncomplicated; Z95.5 Presence of coronary angioplasty implant and graft; Z90.710 Acquired absence of both cervix and uterus; E86.0 Dehydration; I48.91 Unspecified atrial fibrillation; E83.42 Hypomagnesemia; Z66 Do not resuscitate
CPT/HCPCS: 36415; 51701; 71045; 74177; 80048; 80053; 81001; 82948; 83690; 83735; 84100; 85025; 85027; 85055; 86022; 86140; 87040; 87086; 87324; 87493; 93005; 94640; 94669; 96361; 96374; 97110; 97161; 97165; 99285; A9270; C9113; G0378; J0153; J0282; J0696; J1642; J2250; J2310; J2405; J2543; J3370; J3411; J3475; J7030; J7120; Q9967

== ENCOUNTER 2020-06-11 13:45 | HOS | payer OTHER, MEDICARE, SELFPAY ==
[2020-06-11 15:19] VITALS: PULSE 79; RESP 20; O2SAT 93
[2020-06-11 15:28] VITALS: O2SAT 89
[2020-06-11 15:35] VITALS: BMI 19.3
[2020-06-11] MEDS: MORPHINE SULFATE INJ (*CRX) 50 MG in SODIUM CHLORIDE 0.9% IV 95 ML IV CONT (15:51)
[2020-06-11] MEDS: LORazepam INJ (*CRX) 2 MG/ML VIAL 1 MG IV PUSH (16:46)
--- NOTE | 2020-06-11 17:01 | PC.NURSE ---
This patient, Demetria Salgado, was received from ICU on 06/11/20 at 1701. Patient/family oriented to unit policies and routines
[2020-06-11 17:13] VITALS: O2SAT 94
[2020-06-11 17:32] VITALS: BP 112/55; PULSE 84; RESP 6; O2SAT 94
--- NOTE | 2020-06-11 18:01 | PM.IMHP ---
H&P: HPI History of Present Illness Date/Time: 06/11/20 18:01 Chief Complaint: uncontrolled dyspnea Narrative: 75-year-old female with non-small cell lung cancer originating left lung had initially responded to radiation therapy. She had bilateral recurrence was being treated with chemotherapy. She developed diarrhea prior to initiating chemotherapy. She presented to the emergency department with diarrhea dehydration and was found to have Clostridium difficile toxin in her stool. She seemed to be improving with hydration and oral vancomycin. However, in the pocketed spring [employer]er hours of June 10 she developed tachyarrhythmia with SVT and atrial fibrillation. This required cardioversion. She was found to have pneumonia presumably aspiration with atelectasis of the left lung. She failed to improve with the addition of IV vancomycin and Zosyn. Her oxygen saturations were running in the low 90s on 15 L by nasal cannula. Her mental status was fluctuating and palliative performance score was 10. Because of her continued decline despite optimal medical therapy and her known metastatic terminal non-small cell lung cancer, her family opted for comfort care with inpatient hospice. Review of Systems Review of Systems: ROS unobtainable: Yes unobtainable due to medical condition [facility] Past Medical History Medical History Abdominal aortic aneurysm Open repair, 2010 Chronic anemia COPD (chronic obstructive pulmonary disease) Coronary artery disease involving [place] heart without angina pectoris Documentation? Essential hypertension History of stent insertion of renal artery Lung cancer NSCLC of left lung PAD (peripheral artery disease) Thoracic aortic aneurysm without rupture Treated with endovascular repair Surgical History Surgical History History of coronary artery stent placement History of pancreatic surgery S/P LINSEY-BSO Family History Family History Mother Family history of gastrointestinal disorder Grandparent Cerebrovascular accident Father Family history of malignant neoplasm Social History Social History Social History: From [facility]. . Smoking packs per day: 0.5 Smoking cigarettes per day: 10.0 Years smoked: 60 Smoking pack-years: 30.00 Smoking status: Current every day smoker Second hand tobacco smoke exposure: Yes Additional smoking assessment comments: STATES 1/2-1PK/DAY/60YRS Alcohol intake: current Drinks per week: 2 Substance use: never Substance use type: does not use Gender identity (if verbalized by the patient): Female Spiritual care concerns: No Agree to blood products: Yes Meds Home Medications and Allergies Home Medications Medication Instructions Recorded Confirmed Type No Home Medications 06/11/20 06/11/20 History Allergies Allergy/AdvReac Type Severity Reaction Status Date / Time naproxen Allergy Mild Hives Verified 06/04/20 21:28 Vital Signs Vital Signs - 24 hr 06/11/20 15:19 06/11/20 15:28 06/11/20 17:13 Pulse Rate 79 Respiratory Rate 20 Blood Pressure Pulse Oximetry 93 89 L 94 06/11/20 17:32 Pulse Rate 84 Respiratory Rate 6 L Blood Pressure 112/55 L Pulse Oximetry 94 Exam Narrative: Exam Narrative: unresponsive to verbal and tactile stimuli no jvd chest w/o bs or movement heart no S1 or S2, no rhythm audible Extr cool and pale Assessment and Plan Assessment and plan (1) Palliative care by specialist: Code(s): Z51.5 - Encounter for palliative care Status: Acute Assessment and Plan: Met inpatient hospice criteria due to uncontrolled dyspnea at rest in spite of receiving oxygen at 15 liters/minute for control of severe dyspnea labor breathing initiated morphine
--- NOTE | 2020-06-11 18:33 | P.DN_ITS ---
Discharge Sum: Prov Provider Primary care physician: Nicolette Lemus DO Admitting provider: Cosme Winslow MD Discharge Sum: Diag Contributing Factors (1) Pneumonia: (2) Clostridioides difficile diarrhea: (3) Tobacco dependence: (4) NSCLC of left lung: (5) Chronic anemia: (6) PAD (peripheral artery disease): (7) Essential hypertension: (8) COPD (chronic obstructive pulmonary disease): (9) Atrial fibrillation with RVR: Discharge Sum: Summary Date and Time Date of admission: 06/11/20 14:31 Date of : 06/11/20 Time of : 18:10 Summary Details: 75-year-old female with non-small cell lung cancer originating left lung had initially responded to radiation therapy. She had bilateral recurrence was being treated with chemotherapy. She developed diarrhea prior to initiating chemotherapy. She presented to the emergency department with diarrhea dehydration and was found to have Clostridium difficile toxin in her stool. She seemed to be improving with hydration and oral vancomycin. However, in the molder floor hours of June 10 she developed tachyarrhythmia with SVT and atrial fibrillation. This required cardioversion. She was found to have pneumonia presumably aspiration with atelectasis of the left lung. She failed to improve with the addition of IV vancomycin and Zosyn. Her oxygen saturations were running in the low 90s on 15 L by nasal cannula. Her mental status was fluctuating and palliative performance score was 10. Because of her continued decline despite optimal medical therapy and her known metastatic terminal non- small cell lung cancer, her family opted for comfort care with inpatient hospice. Palliative regimen was initiated with morphine infusion at 1 milligram/hour controlled her dyspnea. She had no further struggling or gasping. She peacefully with family at bedside. Additional Data Confirmation of as documented by pronouncing clinician: no pulse, no respirations and no heart sounds Family: at bedside Attending/PCP notified?: Yes Attending physician: Cosme Winslow MD Was code activated?: No Autopsy requested?: No Advance directives: Yes Hospice patient?: Yes
== END 2020-06-11 18:10 | disposition expired | DRG 951 ==
LOC: ANH3MEDSUR 06-14 07:40 → ANHICU 06-14 07:40
PROVIDERS: Admitting Provider Internal Medicine; PCP Family Medicine; Visit Provider Internal Medicine
DX: Z51.5 Encounter for palliative care (principal); J18.9 Pneumonia, unspecified organism; J69.0 Pneumonitis due to inhalation of food and vomit; C34.92 Malignant neoplasm of unspecified part of left bronchus or lung; J44.0 Chronic obstructive pulmonary disease with (acute) lower respiratory infection; A04.72 Enterocolitis due to Clostridium difficile, not specified as recurrent; J98.11 Atelectasis; I73.9 Peripheral vascular disease, unspecified; I10 Essential (primary) hypertension; D64.9 Anemia, unspecified; I48.91 Unspecified atrial fibrillation; F17.200 Nicotine dependence, unspecified, uncomplicated; E86.0 Dehydration; Z95.5 Presence of coronary angioplasty implant and graft; Z90.710 Acquired absence of both cervix and uterus
CPT/HCPCS: A9270; J2060; J2270